=== PATIENT | female | born 2000 | race Caucasian/White ===

== ENCOUNTER → 2019-10-25 16:02 | Outpatient (BNVA) | payer MEDICAID, SELFPAY | PROVIDERS: Visit Provider Obstetrics & Gynecology | DX: Z32.01 Encounter for pregnancy test, result positive (principal) | CPT/HCPCS: 81025 ==

== ENCOUNTER 2019-11-02 12:36 | Outpatient (CLI) | payer MEDICAID, SELFPAY ==
--- NOTE | 2019-11-02 13:13 | US_ITS ---
WS: [id number] TRANSABDOMINAL FIRST TRIMESTER ULTRASOUND HISTORY: UNKNOWN LMP : 1 PARA: 0 COMPARISON: None available. FINDINGS: Cervical length is 3.7 cm; closed. Single live intrauterine . [place] rump length measuring 4.3 cm. . Gestational sac measures 11w1d cm. cardiac tones 160 BPM. Estimated date of delivery 05/22/2020. [place]-rump length measured 4.33 cm suggesting 11 weeks 1 day gestation. Right ovary measures 1.6 cm x 2.4 cm x 1.9 cm. US/US OB <= 14 weeks fetus [id number] IMPRESSION: [place]-rump length of the fetus suggest an weeks 1 day gestation due date Decemb er 2019.
== END 2019-11-02 12:37 | disposition home or self-care (01) ==
PROVIDERS: Visit Provider Nurse Practitioner Women's Health
DX: Z36.87 Encounter for antenatal screening for uncertain dates (principal); Z3A.11 11 weeks gestation of pregnancy
CPT/HCPCS: 76801

== ENCOUNTER → 2019-11-09 10:27 | Outpatient (BNVA) | payer MEDICAID, SELFPAY | PROVIDERS: Visit Provider Obstetrics & Gynecology | DX: Z34.01 Encounter for supervision of normal first pregnancy, first trimester (principal) | CPT/HCPCS: 80053; 80307; 81000; 85027; 86592; 86762; 86803; 86850; 86900; 87340; 87491; 87591; 87806; 88175 ==

== ENCOUNTER 2019-11-10 21:51 | Observation (INO) | payer MEDICAID, SELFPAY ==
[2019-11-10 22:03] VITALS: BP 109/71; PULSE 81; RESP 14; TEMP 36.3; O2SAT 98; BMI 28.3
--- NOTE | 2019-11-10 23:25 | ED_ITS ---
Documented by User: EDWIN Matthews 11/11/19 03:51 HPI - Back Pain/Injury General: Chief Complaint: Back Pain/Injury Stated Complaint: back and lung pain Time Seen by Provider: 11/10/19 23:25 History of Present Illness: HPI Narrative: Patient is a 19-year-old female that has 12 weeks comes to the ED with thoracic back pain. Pain started tonight. Patient says that she had her back popped earlier tonight by laying on the floor on her stomach and then her brother put weight on her her upper back to pop her back. Patient says she did not have any pain or discomfort after back was popped. One hour later she started having pleuritic midthoracic back pain. Patient also states that she did have a cheeseburger right before pain started as well. She also describes having some abdominal pain in the right upper quadrant region. She rates pain an 8 out of 10. She has not taken any pain meds before arriving to the ED. patient also states she had one episode of emesis earlier today. Denies any numbness tingling or weakness to extremities. Denies any bladder or bowel incontinence or loss of sensation in the pelvic region. Denies vaginal discharge or bleeding. Associated symptoms: Reports abdominal pain (RUQ), nausea and vomiting; Deny chills, dysuria, fatigue, fever(s) or hematuria Review of Systems Const: Denies: fever(s), chills or fatigue Eyes: Denies: change in vision or eye discomfort ENMT: Denies: throat pain, odynophagia, nasal discharge or nasal congestion Card: Denies: chest pain, palpitations, edema, swelling of feet/ankles, dyspnea on exertion or orthopnea Resp: Denies: dyspnea, productive cough or non-productive cough GI: Reports: abdominal pain (RUQ), nausea and vomiting; Denies: diarrhea, constipation or hematochezia : Denies: flank pain, dysuria or hematuria Musc: Reports: back pain; Denies: neck pain or extremity swelling Skin/Breast: Denies: rash or new lesions Neuro: Denies: headache(s), numbness in extremities or weakness in extremities PFS ED PFSH: Medical History Genital herpes Surgical History No pertinent past surgical history Family History Denies family history of Diabetes Bleeding disorder Cancer Hypertension Stroke Social History Smoking and tobacco status: never smoked Alcohol intake: former Former alcohol use details: Social before Physical Exam Const: COMMON NORMALS: patient oriented x3 and alert GENERAL APPEARANCE: cooperative; not comfortable (Patient appears uncomfortable and in some pain.) HENMT: COMMON NORMALS: normocephalic HEAD & SCALP: normocephalic MOUTH: moist mucous membranes abnormal (mild dehydration) THROAT: posterior oropharynx normal and uvula midline Eye: COMMON NORMALS: Equal, round and reactive pupils present PUPIL: Yes Equal, round and reactive pupils present Neck/C-Spine: COMMON NORMALS: supple GENERAL: Yes normal visual inspection Resp: COMMON NORMALS: normal respiratory effort, No retractions, No use of accessory muscles and clear to auscultation bilaterally AUSCULTATION: clear to auscultation bilaterally Cardio: COMMON NORMALS: regular rate, regular rhythm, S1 normal heart sound present, S2 normal heart sound present, No gallops present (Cardio), No clicks present (Cardio), No murmurs present (Cardio) and Peripheral pulses 2+ throughout RATE: regular rate RHYTHM: regular rhythm HEART SOUNDS: S1 normal heart sound present and S2 normal heart sound present PERIPHERAL PULSES: Peripheral pulses 2+ throughout GI: COMMON NORMALS: Normal to inspection, nondistended, normoactive bowel sounds present, Soft to palpation and no masses AUSCULTATION: Yes normoactive bowel sounds PALPATION: Yes Soft to palpation and Yes Tenderness to palpation present (GI) Details: RUQ (and epigastric region) : COMMON NORMALS: Yes no CVA tenderness BLADDER/KIDNEY EXAM: Yes no CVA tenderness Back/Pelvis: COMMON NORMALS: no CVA tenderness THORACIC SPINE/UPPER BACK: Yes thoracic spinal tenderness and Yes paraspinal muscle tenderness Extremity: COMMON NORMALS: normal to inspection and no pedal edema Neuro: COMMON NORMALS: patient oriented x3 and moves all extremities SENSORIUM/ORIENTATION: Yes alert Skin: COMMON NORMALS: no rashes or lesions noted GENERAL SKIN EXAM: no rashes or lesions noted and dry skin Course Reevaluation(s): Reevaluation #1: Patient had an episode of emesis while here in the ED. IV fluids, Zofran and morphine were ordered patient. Reevaluation #2: I used a Doppler to assess heart tones. I was able to capture a heart tone briefly and rate was at 190. Consultations: Consultation #1: I contacted the on-call general surgeon Dr. Arellano and spoke with him about patient's case and symptoms. I informed him that patient is [address] Arellano said he would like patient to be admitted but the patient's OB would be the admitting doctor and he wanted me to contact OB doctor. I then called patient's OB Dr. Mireles and informed him of patient's condition and that I had spoke to Dr. Arellano about patient and that he would like patient to be admitted. Dr. Mireles said that given patient's current problem of cholecystitis, he should not be the admitting doctor for patient because patient's complaint is not an OB related problem. Patient will be admitted to Dr. Arellano and OB can be consulted. Vital Signs: Vital signs: Vital Signs Temperature 97.4 F L 11/10/19 22:03 Pulse Rate 87 11/11/19 03:51 Respiratory Rate 16 11/11/19 03:51 Blood Pressure 130/83 11/11/19 03:51 Pulse Oximetry 98 11/11/19 03:51 MDM - Back Pain/Injury MDM Narrative: Medical decision making narrative: Patient is a 12 week 19-year-old female who comes to the ED with right upper quadrant abdominal pain radiating to back, nausea and vomiting. Patient appeared dehydrated and was having 8 out of 10 abdominal pain and vomited while here on the unit. White blood cells 13.6, CMP and lipase unremarkable. Ultrasound of gallbladder showed gallbladder wall thickness of 4 mm multiple stones and sludge seen. heart tones were assessed using a Doppler and I was able to capture briefly heart rate of 190. I contacted Dr. Arellano and discussed patient's case and patient will be admitted. I also contacted Dr. Mireles to inform him of patient's case and condition per Dr. Arellano's request. Dr. Rai will handle admission orders. Patient was informed about admission and she understood and agreed with plan. Lab Data: Attestation: I reviewed the patient's lab results. Labs: Lab Results 11/11/19 11/11/19 Range/Units 02:43 02:43 WBC 13.6 H (4.0-10.0) 10^3/ uL RBC 4.32 (4.1-5.3) 10^6/u L Hgb 12.6 (11.5-15.3) g/dL Hct 37.9 (37.0-47.0) % MCV 87.7 (81-99) fL MCH 29.2 (28.0-34.0) pg MCHC 33.2 (30.0-36.0) g/dL RDW 12.1 (12.1-15.1) % Plt Count 210 (130-400) 10^3/c mm MPV 10.9 H (7.4-10.4) fL Neut % (Auto) 92.1 % Lymph % (Auto) 5.6 % [place] % (Auto) 1.8 % Eos % (Auto) 0.1 % Baso % (Auto) 0.1 % Neut # (Auto) 12.5 H (1.8-7.7) 10^3/u L Lymph # (Auto) 0.8 (0.8-4.8) 10^3/u L [place] # (Auto) 0.2 (0.2-0.9) 10^3/u L Eos # (Auto) 0.0 (0.0-0.8) 10^3/u L Baso # (Auto) 0.0 (0.0-0.1) 10^3/u L Nucleated RBC % (a uto) 0 % Nucleated RBCs # 0.0 /100WBC Sodium 136 (136-145) mmol/L Potassium 3.9 (3.5-5.1) mmol/L Chloride 103 (98-107) mmol/L Carbon Dioxide 18 L (22-29) mmol/L Anion Gap 18.9 (5-19) BUN 6 (6-20) mg/dL Creatinine 0.4 L (0.5-0.9) mg/dL GFR Calculation 201.5 H (90-130) mL/min Glucose 116 H (65-115) mg/dL Calculated Osmolal ity 279 L (285-295) mOsm/k g Calcium 9.4 (8.5-10.5) mg/dL Total Bilirubin 0.8 (0.15-1.2) mg/dL AST 20 (0-32) U/L ALT 31 (0-33) U/L Alkaline Phosphata se 87 (35-105) IU/L Total Protein 6.8 (6.6-8.7) g/dL Albumin 3.7 (3.5-5.2) g/dL Globulin 3.1 (1.3-4.6) g/dL Lipase 19 (13-60) U/L Imaging Data^: Xray Ortho: Attestation: I personally reviewed and interpreted this imaging study as follows: Radiologist's impression: [address] [address] XRay Report Signed Patient: Elian Xiong Unit #: [id number] : 2000 Age/Sex: 19 / F ADM Date: 11/10/19 Loc: ER Room/Bed: Attending Dr: Ordering Provider/Ordering MD: Ubaldo John Date of Service: 11/10/19 Procedure(s): XR thoracic spine 2V 31830 Accession Number(s): [id number] Report Number: [id number] PROCEDURE INFORMATION: Exam: XR Thoracic Spine, 3 Views Exam date and time: 11/11/2019 12:13 AM Age: 19 years old Clinical indication: Pain in thoracic spine; Patient HX: PT states someone popped her back and now has pain, PT 12 weeks , shielded; Additional info: Mid to upper back pain TECHNIQUE: Imaging protocol: XR of the thoracic spine, 3 views. COMPARISON: No relevant prior studies available. FINDINGS: Vertebrae: Normal. No acute fracture. Normal alignment. Soft tissues: Unremarkable. XR/XR thoracic spine 2V [id number] IMPRESSION: No acute findings. Dictated By: Benedicto Deluca Signed By: Benedicto Deluca Signed Date/Time: 11/11/1938 DD/ CXR: Attestation: I personally reviewed and interpreted this imaging study as follows: Radiologist's impression: [address] [address] XRay Report Signed Patient: Elian Xiong Unit #: [id number] : 2000 Age/Sex: 19 / F ADM Date: 11/10/19 Loc: ER Room/Bed: Attending Dr: Ordering Provider/Ordering MD: Ubaldo John Date of Service: 11/10/19 Procedure(s): XR chest 1V portable [id number] Accession Number(s): [id number] Report Number: [id number] PROCEDURE INFORMATION: Exam: XR Chest, 1 View Exam date and time: 11/11/2019 12:13 AM Age: 19 years old Clinical indication: Chest wall pain; Patient HX: PT states someone popped her back and now has pain, PT 12 weeks , shielded; Additional info: Pleuritic cp TECHNIQUE: Imaging protocol: XR of the chest Views: 1 view. COMPARISON: No relevant prior studies available. FINDINGS: Lungs: Unremarkable. No consolidation. Pleural space: Unremarkable. No pleural effusion. No pneumothorax. Heart/Mediastinum: Unremarkable. No cardiomegaly. Bones/joints: Unremarkable. XR/XR chest 1V portable [id number] IMPRESSION: No acute findings. Dictated By: Benedicto Deluca Signed By: Benedicto Deluca Signed Date/Time: 11/11/19 0043 DD/ 0037 US: Attestation: I personally reviewed and interpreted this imaging study as follows: Radiologist's impression: Ultrasound of the gallbladder?prelim report-multiple gallstones seen and gallbladder wall 0.36 cm thick. Sludge was also seen. [address] [address] Ultrasound Report Signed Patient: Elian Xiong Unit #: [id number] : 2000 Ac ct#:[id number] Age/Sex: 19 / F ADM Date: 11/10/19 Loc: ER Room/Bed: Attending Dr: Ordering Provider/Ordering MD: Ubaldo John Date of Service: 11/11/19 Procedure(s): US gall bladder 33414 Accession Number(s): [id number] Report Number: [id number] PROCEDURE INFORMATION: Exam: US Abdomen Limited, Right Upper Quadrant Exam date and time: 11/11/2019 2:13 AM Age: 19 years old Clinical indication: Abdominal pain; Acute; ; Patient HX: Nv ruq pain; Additional info: N/v ruq pain TECHNIQUE: Imaging protocol: Real-time ultrasound of the abdomen with image documentation. Examination was focused on the right upper quadrant. COMPARISON: No relevant prior studies available. FINDINGS: Liver: Unremarkable liver, no focal abnormality. Gallbladder: Large amount of presumed biliary sludge within the gallbladder. Couple of small echogenic areas with probable acoustic shadowing, compatible with small gallstones. Mild to moderate gallbladder wall thickening, measuring up to about 4 mm. No definite pericholecystic fluid. The gallbladder does not appear abnormally distended at this time. Common bile duct: No significant biliary dilation, common duct measures about 5 mm. Pancreas: Visible pancreas unremarkable. Some of the pancreas is obscured by bowel gas at this time. Right kidney: Images of the right kidney show no hydronephrosis. US/US gall bladder 37500 IMPRESSION: 1. Cholelithiasis and biliary sludge in the gallbladder, see additional details above. 2. No significant biliary tree dilation. Above. 3. Other findings discussed above. Dictated By: Alessandro Owens MD Signed By: Alessandro Owens MD Signed Date/Time: 11/11/19234 DD/ 2 Discharge Plan Discharge Patient Disposition: Admitted As Inpatient Admit Provider: Gato Arellano Condition: Good Discharge Date/Time: 11/11/19 04:25 Sign Out Sign Out Data: Patient Sign Out occurred on 11/11/19 at 04:00. Patient's care was discussed, and care was transferred from to Jacque Nesbitt. Coding Level of Care Code ED Medical Delivery Driver for [facility] Fwd Exam Comprehensive Documented by User: Jacque Nesbitt 11/11/19 05:13 HPI - Back Pain/Injury General: Chief Complaint: Back Pain/Injury Stated Complaint: back and lung pain Time Seen by Provider: 11/10/19 23:25 PFSH ED PFSH: Medical History Genital herpes Surgical History No pertinent past surgical history Family History Denies family history of Diabetes Bleeding disorder Cancer Hypertension Stroke Social History Smoking and tobacco status: never smoked Alcohol intake: former Former alcohol use details: Social before Course Vital Signs: Vital signs: Vital Signs Temperature 97.4 F L 11/10/19 22:03 Pulse Rate 87 11/11/19 03:51 Respiratory Rate 16 11/11/19 03:51 Blood Pressure 130/83 11/11/19 03:51 Pulse Oximetry 98 11/11/19 03:51 MDM - Back Pain/Injury MDM Narrative: Medical decision making narrative: The patient was seen and examined by me I agree with midlevel's assessment and plan. I did discuss the patient directly with Dr. Arellano. Patient is feeling better after IV fluids and pain and nausea medication. Nonetheless she is very dehydrated and I believe would benefit from coming into the hospital for further evaluation and care. Dr. Arellano is in agreement. Dr. Mireles will consult. Further care be dictated by them on the floor. Lab Data: Labs: Lab Results 11/11/19 11/11/19 Range/Units 02:43 02:43 WBC 13.6 H (4.0-10.0) 10^3/ uL RBC 4.32 (4.1-5.3) 10^6/u L Hgb 12.6 (11.5-15.3) g/dL Hct 37.9 (37.0-47.0) % MCV 87.7 (81-99) fL MCH 29.2 (28.0-34.0) pg MCHC 33.2 (30.0-36.0) g/dL RDW 12.1 (12.1-15.1) % Plt Count 210 (130-400) 10^3/c mm MPV 10.9 H (7.4-10.4) fL Neut % (Auto) 92.1 % Lymph % (Auto) 5.6 % [place] % (Auto) 1.8 % Eos % (Auto) 0.1 % Baso % (Auto) 0.1 % Neut # (Auto) 12.5 H (1.8-7.7) 10^3/u L Lymph # (Auto) 0.8 (0.8-4.8) 10^3/u L [place] # (Auto) 0.2 (0.2-0.9) 10^3/u L Eos # (Auto) 0.0 (0.0-0.8) 10^3/u L Baso # (Auto) 0.0 (0.0-0.1) 10^3/u L Nucleated RBC % (a uto) 0 % Nucleated RBCs # 0.0 /100WBC Sodium 136 (136-145) mmol/L Potassium 3.9 (3.5-5.1) mmol/L Chloride 103 (98-107) mmol/L Carbon Dioxide 18 L (22-29) mmol/L Anion Gap 18.9 (5-19) BUN 6 (6-20) mg/dL Creatinine 0.4 L (0.5-0.9) mg/dL GFR Calculation 201.5 H (90-130) mL/min Glucose 116 H (65-115) mg/dL Calculated Osmolal ity 279 L (285-295) mOsm/k g Calcium 9.4 (8.5-10.5) mg/dL Total Bilirubin 0.8 (0.15-1.2) mg/dL AST 20 (0-32) U/L ALT 31 (0-33) U/L Alkaline Phosphata se 87 (35-105) IU/L Total Protein 6.8 (6.6-8.7) g/dL Albumin 3.7 (3.5-5.2) g/dL Globulin 3.1 (1.3-4.6) g/dL Lipase 19 (13-60) U/L Discharge Plan Discharge Patient Disposition: Admitted As Inpatient Admit Provider: Gato Arellano Condition: Good Discharge Date/Time: 11/11/19 04:25 Sign Out Sign Out Data: Patient Sign Out occurred on 11/11/19 at 04:00. Patient's care was discussed, and care was transferred from to [facility]. Coding Level of Care Code ED Medical Delivery Driver for [facility] Fwd Exam Comprehensive
--- NOTE | 2019-11-10 23:42 | XRR_ITS ---
PROCEDURE INFORMATION: Exam: XR Chest, 1 View Exam date and time: 11/11/2019 12:13 AM Age: 19 years old Clinical indication: Chest wall pain; Patient HX: PT states someone popped her back and now has pain, PT 12 weeks , shielded; Additional info: Pleuritic cp TECHNIQUE: Imaging protocol: XR of the chest Views: 1 view. COMPARISON: No relevant prior studies available. FINDINGS: Lungs: Unremarkable. No consolidation. Pleural space: Unremarkable. No pleural effusion. No pneumothorax. Heart/Mediastinum: Unremarkable. No cardiomegaly. Bones/joints: Unremarkable. XR/XR chest 1V portable [id number] IMPRESSION: No acute findings.
--- NOTE | 2019-11-10 23:42 | XRR_ITS ---
PROCEDURE INFORMATION: Exam: XR Thoracic Spine, 3 Views Exam date and time: 11/11/2019 12:13 AM Age: 19 years old Clinical indication: Pain in thoracic spine; Patient HX: PT states someone popped her back and now has pain, PT 12 weeks , shielded; Additional info: Mid to upper back pain TECHNIQUE: Imaging protocol: XR of the thoracic spine, 3 views. COMPARISON: No relevant prior studies available. FINDINGS: Vertebrae: Normal. No acute fracture. Normal alignment. Soft tissues: Unremarkable. XR/XR thoracic spine 2V [id number] IMPRESSION: No acute findings.
[2019-11-11] VITALS (16 sets, daily range): BP systolic 102–134; BP diastolic 60–94; PULSE 73–109; RESP 16–20; TEMP 36.8–37.9; O2SAT 97–100
--- NOTE | 2019-11-11 00:42 | USR_ITS ---
PROCEDURE INFORMATION: Exam: US Abdomen Limited, Right Upper Quadrant Exam date and time: 11/11/2019 2:13 AM Age: 19 years old Clinical indication: Abdominal pain; Acute; ; Patient HX: Nv ruq pain; Additional info: N/v ruq pain TECHNIQUE: Imaging protocol: Real-time ultrasound of the abdomen with image documentation. Examination was focused on the right upper quadrant. COMPARISON: No relevant prior studies available. FINDINGS: Liver: Unremarkable liver, no focal abnormality. Gallbladder: Large amount of presumed biliary sludge within the gallbladder. Couple of small echogenic areas with probable acoustic shadowing, compatible with small gallstones. Mild to moderate gallbladder wall thickening, measuring up to about 4 mm. No definite pericholecystic fluid. The gallbladder does not appear abnormally distended at this time. Common bile duct: No significant biliary dilation, common duct measures about 5 mm. Pancreas: Visible pancreas unremarkable. Some of the pancreas is obscured by bowel gas at this time. Right kidney: Images of the right kidney show no hydronephrosis. US/US gall bladder [id number] IMPRESSION: 1. Cholelithiasis and biliary sludge in the gallbladder, see additional details above. 2. No significant biliary tree dilation. Above. 3. Other findings discussed above.
[2019-11-11] MEDS: ondansetron 2 mg/ML SDV 2 mL 4 MG IVP (02:00)
[2019-11-11] MEDS: morphine 4 mg/mL SDV 1 mL IVP ×2 (02:00→05:12)
[2019-11-11] MEDS: sodium chloride 0.9% 1,000 ML 999 ML IV (02:02)
[2019-11-11 02:50] LABS: Basophils % 0.1 %; Eosinophils % 0.1 %; Hematocrit 37.9 % (37.0-47.0); Hemoglobin 12.6 g/dL (11.5-15.3); Lymphocytes # 0.8 10^3/uL (0.8-4.8); Lymphocytes % 5.6 %; Mean Corpuscular HGB Conc 33.2 g/dL (30.0-36.0); Mean Corpuscular Hemoglobin 29.2 pg (28.0-34.0); Mean Corpuscular Volume 87.7 fL (81-99); Mean Platelet Volume 10.9 fL (7.4-10.4); Monocytes # 0.2 10^3/uL (0.2-0.9); Monocytes % 1.8 %; Neutrophils # 12.5 10^3/uL (1.8-7.7); Neutrophils % 92.1 %; Nucleated Red Blood Cells % 0 %; Platelet Count 210 10^3/cmm (130-400); Red Blood Count 4.32 10^6/uL (4.1-5.3); Red Cell Distribution Width 12.1 % (12.1-15.1); White Blood Count 13.6 10^3/uL (4.0-10.0)
[2019-11-11 03:06] LABS: Alanine Aminotransferase 31 U/L (0-33); Albumin Level 3.7 g/dL (3.5-5.2); Alkaline Phosphatase 87 IU/L (35-105); Anion Gap 18.9 (5-19); Aspartate Amino Transferase 20 U/L (0-32); Blood Urea Nitrogen 6 mg/dL (6-20); Calcium 9.4 mg/dL (8.5-10.5); Carbon Dioxide 18 mmol/L (22-29); Chloride 103 mmol/L (98-107); Globulin 3.1 g/dL (1.3-4.6); Glomerular Filtration Rate 201.5 mL/min (90-130); Glucose 116 mg/dL (65-115); Lipase 19 U/L (13-60); Osmolality Calculated 279 mOsm/kg (285-295); Potassium 3.9 mmol/L (3.5-5.1); Sodium 136 mmol/L (136-145); Total Bilirubin 0.8 mg/dL (0.15-1.2); Total Protein 6.8 g/dL (6.6-8.7)
[2019-11-11] MEDS: dextrose 5%-sod chloride 0.45% 1,000 ML 150 ML IV (05:18)
[2019-11-11] MEDS: piperacillin-tazobactam 3.375 GM in sodium chloride 0.9% (plus) 50 ML IV ×2 (05:18→12:59)
--- NOTE | 2019-11-11 09:04 | PM.HP ---
Providers/Chief Complaint Admitting Physician: Gato Arellano MD Chief Complaint: back and lung pain History of Present Illness Elian Xiong is a 19 year old female who presented to the ER last night with severe right-sided abdominal pain associated nausea after she ate a cheeseburger. Patient states that she has had mild episodes in the past. Denies any fevers chills constipation or diarrhea. Denies any history of peptic ulcer disease or gastric ulcers in the past. Review of Systems General: Reports: 10 or more systems reviewed and unremarkable except in HPI and below Medications/Allergies Home Medications Medication Instructions Recorded Confirmed Last Taken Type No Known Home Medications 11/09/19 11/09/19 Unknown History Allergies Allergy/AdvReac Type Severity Reaction Status Date / Time No Known Allergies Allergy Verified 11/09/19 10:29 PFSH Acute PFSH: Medical History Genital herpes Surgical History No pertinent past surgical history Family History Denies family history of Diabetes Bleeding disorder Cancer Hypertension Stroke Social History Smoking and tobacco status: never smoked Alcohol intake: former Former alcohol use details: Social before Vitals/I&O/Wt Last Vital Signs Temp 98.2 F 11/11/19 08:00 Pulse 79 11/11/19 08:00 Resp 16 11/11/19 08:00 BP 102/60 11/11/19 08:00 Pulse Ox 98 11/11/19 08:00 Weight last 48 hrs Weight 160 lb Physical Exam Narrative: EXAM NARRATIVE: HEENT: Normocephalic Eye: Sclera /conjunctiva normal Respiratory and chest: Bilateral clear breath sounds on auscultation Cardiovascular: Normal S1 and S2 heart sounds Abdomen: Soft to palpation, tender right upper quadrant, Sanchez sign positive Neurological: Oriented to place person and time Skin: Intact, no lesions appreciated on gross exam Data : 11/11/19 02:43 11/11/19 02:43 A&P Assessment and plan (1) Symptomatic cholelithiasis: 19-year-old female who is greater than 12 weeks who presents with symptomatic cholelithiasis. Her heart tones documented prior to surgery. Discussed with patient the risks to the fetus. Discussed the case with her LEARNING ENGINEER Dr. Mireles who felt it was safe to proceed with surgery since she is greater than 12 weeks. Plan for laparoscopic possible open cholecystectomy Procedure, risks, benefits and alternatives have been discussed with the patient who wishes to proceed with surgery. Status: Acute Attestations Medical Necessity Statement*: Symptomatic cholelithiasis Coding Level of Care Code Acute Geotechnical Department Manager for Rosi [facility] Diagnoses Symptomatic cholelithiasis K80.20
--- NOTE | 2019-11-11 09:49 | PC.CHAP ---
Pastoral Care Encounter/Spiritual Assessment Type of Contact [] Declined virtual classroom manager visit [] Patient/Family/Request visit [] Outpatient visit [] Follow-up visit [] Physician referral [] Code/Alert [x] Routine visit [] Staff referral [] Actively dying [] Patient sleeping [] Family support [] [] Out of room [] Palliative care [] [] Receiving care in room [] Pre-surgical visit [] Trauma [] Long length of stay [] ICU visit [] Other: Relational/Emotional Strength [] Patient feels connected with others/family/visitors/staff [] Distress [] Loneliness/isolation [] Abandonment Spirituality of Patient [] Person of Serina [] Attends Pentecostal of their Serina [] Believes in Prayer [] Reads Bible or Roman Catholic materials [] There are Spiritual issues to be addressed Communications Superintendent Interventions [x] Prayer [] Active listening [] Non-anxious presence [] Spiritual/emotional support [] Crisis/trauma care [] Spiritual counseling [] Bereavement support [] Provided bereavement packet [] Provided Bible/devotional materials [] Provided toy/stuffed animal, coloring book to patient or family member [] Provided Communion [] Anointing/[place] [] Salvation [x] Completed spiritual assessment [] Other: Impact on Illness or Injury [] Angry [] Fearful [] Anxious [] Often cries [] Exhaustion [] Unable to work [] Unable to attend yarsanism [] Unable to walk/stand [] Unable to read [] Unable to drive [] Unable to eat/drink [] Unable to sleep [] Unable to be with family [] Patient intubated [] Other: Summary Patient awaiting surgery or status update. Requested nurse for update. Rested well last night Time spent with patient 10 min
--- NOTE | 2019-11-11 12:15 | P.ANESASSM_ITS ---
Pre-Anesthetic Assessment Pre-Anesthetic Assessment: Height/Weight: Height 1.6 m Weight 72.575 kg Temp Pulse Resp BP Pulse Ox 98.4 F 89 16 108/71 97 11/11/19 11:41 11/11/19 11:41 11/11/19 11:41 11/11/19 11:41 11/11/19 11:41 Preop Diagnosis: Cholelithiasis Proposed Procedure: Operation Date: 11/11/19 12:20 Proposed Procedures p Laparoscopic Cholecystectomy(Not Applicable) - Gato Arellano MD Familial anesthetic complications: None Was Beta Omer taken within 24 hours: N/A Last intake: Intake Last Liquid Date 11/10/19 Last Liquid Time 02:00 Last Solid Date 11/10/19 Last Solid Time 19:00 Social: Social History: No alcohol and No tobacco Exam: Pre-Anes Outpt Exam: alert, oriented x 3, clear to auscultation bilaterally and regular rate & rhythm Airway: Cervical ROM: WNL MP: 2 Dentition: Chipped Anesthetic Plan: ASA status: 2E Anesthesia: General Risk of > 500 ml blood loss (7ml/kg in children): No Meds/Allergies Current Medications: Current Medications Generic Name Dose Route Start Last Admin Trade Name Freq PRN Reason Stop Dose Admin Dextrose/Sodium Ch loride 1,000 mls @ 150 m ls/hr 11/11/19 04:40 11/11/19 05:18 Dextrose 5%-Sod Chloride 0.45% IV 150 mls/hr .Q6H40M RAMIRO Administration Cefazolin Sodium/D extrose 2 gm in 50 mls @ 100 mls/hr 11/11/19 08:00 11/11/19 09:05 Kefzol IV 100 mls/hr Q8H RAMIRO Administration Protocol Morphine Sulfate 4 mg 11/11/19 04:40 11/11/19 05:12 Morphine IVP 4 mg Q4H PRN Administration SEVERE PAIN PFSH Anesthesia PFSH: Medical History Genital herpes Surgical History No pertinent past surgical history Family History Denies family history of Diabetes Bleeding disorder Cancer Hypertension Stroke Social History Smoking and tobacco status: never smoked Alcohol intake: former Former alcohol use details: Social before Data Anesthesia CBC & Chem 7: 11/11/19 02:43 11/11/19 02:43 Other Labs: Laboratory Results - last 48 hr 11/11/19 11/11/19 02:43 02:43 WBC 13.6 H RBC 4.32 Hgb 12.6 Hct 37.9 MCV 87.7 MCH 29.2 MCHC 33.2 RDW 12.1 Plt Count 210 MPV 10.9 H Neut % (Auto) 92.1 Lymph % (Auto) 5.6 [place] % (Auto) 1.8 Eos % (Auto) 0.1 Baso % (Auto) 0.1 Neut # (Auto) 12.5 H Lymph # (Auto) 0.8 [place] # (Auto) 0.2 Eos # (Auto) 0.0 Baso # (Auto) 0.0 Nucleated RBC % (auto) 0 Nucleated RBCs # 0.0 Sodium 136 Potassium 3.9 Chloride 103 Carbon Dioxide 18 L Anion Gap 18.9 BUN 6 Creatinine 0.4 L GFR Calculation 201.5 H Glucose 116 H Calculated Osmolality 279 L Calcium 9.4 Total Bilirubin 0.8 AST 20 ALT 31 Alkaline Phosphatase 87 Total Protein 6.8 Albumin 3.7 Globulin 3.1 Lipase 19 Cardiac Studies: No Data to Display
--- NOTE | 2019-11-11 12:16 | SUR.PHASEI ---
1215 HR 152
--- NOTE | 2019-11-11 13:17 | SUR.OPER ---
Pt's mother - Teresa - notified of surgery start via her cell phone.
--- NOTE | 2019-11-11 13:50 | SUR.PHASEI ---
1350 HRT 146
--- NOTE | 2019-11-11 14:12 | SUR.PHASEI ---
1410 PT RESTING COMFORTABLE APPEARS TO BE SLEEPING, VS WITHIN NORMAL LIMITS,
[2019-11-11] MEDS: HYDROcodone-acetaminophen 5-325 mg Tablet 1 TAB PO (14:40)
--- NOTE | 2019-11-11 14:45 | PM.DCS ---
Discharge Providers Date of Admission: 11/11/19 03:32 Date of Discharge: November 11, 2019 Attending Provider at Admission: Gato Arellano MD Attending Provider at Discharge: Gato Arellano MD Diagnoses at Discharge Discharge Diagnosis (1) Symptomatic cholelithiasis: Status: Resolved Reason for Visit Reason for Visit: back and lung pain Hospital Course Discharge Summary: This is a 19-year-old female who presented to the ER with right upper quadrant pain and nausea and was diagnosed with acute calculus cholecystitis. Patient underwent laparoscopic cholecystectomy. At time of discharge her vital signs are stable and she was tolerating liquid diet. Discharge Data Data Completed and Pending: Completed Studies During Hospitalization Category Date Time Status XR chest 1V sean ble [id number] Stat Exams 11/10/19 23:42 Completed XR thoracic spine 2V [id number] Stat Exams 11/10/19 23:42 Completed US gall bladder 7 [id number] Urgent Ultrasound 11/11/19 00:42 Completed Pending at discharge Category Date Time Status Pathology: Surgic al [PTH] Routine Pth 11/11/19 13:24 Ordered Labs from last 24 hours 11/11/19 11/11/19 02:43 02:43 WBC 13.6 H RBC 4.32 Hgb 12.6 Hct 37.9 MCV 87.7 MCH 29.2 MCHC 33.2 RDW 12.1 Plt Count 210 MPV 10.9 H Neut % (Auto) 92.1 Lymph % (Auto) 5.6 [place] % (Auto) 1.8 Eos % (Auto) 0.1 Baso % (Auto) 0.1 Neut # (Auto) 12.5 H Lymph # (Auto) 0.8 [place] # (Auto) 0.2 Eos # (Auto) 0.0 Baso # (Auto) 0.0 Nucleated RBC % (a uto) 0 Nucleated RBCs # 0.0 Sodium 136 Potassium 3.9 Chloride 103 Carbon Dioxide 18 L Anion Gap 18.9 BUN 6 Creatinine 0.4 L GFR Calculation 201.5 H Glucose 116 H Calculated Osmolal ity 279 L Calcium 9.4 Total Bilirubin 0.8 AST 20 ALT 31 Alkaline Phosphata se 87 Total Protein 6.8 Albumin 3.7 Globulin 3.1 Lipase 19 Vitals: Last Vital Signs Temp 98.7 F 11/11/19 14:30 Pulse 83 11/11/19 14:30 Resp 20 H 06/12/20 14:30 BP 124/68 11/11/19 14:30 Pulse Ox 100 11/11/19 14:30 Discharge Plan Discharge Patient Disposition: Home, Self-Care Condition: Stable Prescriptions: [place] 5-325 mg tablet 1 tab PO Q6H 7 Days Qty: 20 RF: 0 docusate sodium [Colace] 100 mg capsule 100 mg PO BID Qty: 30 RF: 0 No Action No Known Home Medications RF: 0 Discharge Orders: Discharge Order (Routine); Ordered 11/11/19 Ordered By: Gato Arellano Referrals: Gato Arellano MD [Physician] - 2 weeks Activity Restrictions/Additional Instructions: 1. Up and walking as tolerated. 2. Ok to shower in 48 hours after surgery. 3. Remove Dermabond dressing in 7-10 days. 4. Do not lift more than 10 pounds. 5. Do not operate heavy machinery or drive while using pain medications. 6. Advised to return to ER or contact my office if there are any signs of infection like, increasing pain, fevers, chills, redness or drainage of pus. 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
[2019-11-11] MEDS: metoclopramide 5 mg/mL SDV 2 mL 10 MG IVP (15:55)
--- NOTE | 2019-11-24 14:18 | PM.OP ---
Operative Report Date of procedure: November 11, 2019 Pre-op Diagnosis: Cholelithiasis Post-op diagnosis: same Procedure Done: Laparoscopic cholecystectomy Specimens removed/disposition: Gallbladder Surgeon: Gato Arelalno Anesthesia: General Estimated blood loss (mL): 10 Condition: stable Disposition: PACU Procedure: The patient was taken to the operating room and was intubated under general anesthesia. After the antibiotic had been administered, the abdomen was prepped and draped in a sterile manner. Using a #15 blade, a 1 centimeter infraumbilical curvilinear incision was made and using an open Jessica technique the peritoneal cavity was entered. A 10 millimeter port was placed and 15 millimeters of pneumoperitoneum was created. A 10 millimeter, 30 degrees scope was then introduced. Three 5 millimeter ports were placed in the epigastric, midclavicular and the anterior axillary line two fingerbreadths below the costal margin on the right side under the direct visualization. Ratcheted forceps were introduced into the lateral most port and was used to retract the fundus of the gallbladder cephalad and using forceps the infundibulum of the gallbladder was retracted laterally. Using L-hook cautery the peritoneum overlying the Calot's triangle was opened medially and laterally until the cystic duct and the cystic artery were skeletonized. Dissection was carried along the body of the gallbladder and after ensuring critical view of safety, 4 clips applied on the cystic duct and 3 clips applied on the cystic artery and cut leaving, 3 clips on the remaining portion of the duct and 2 clips on the remaining portion of the artery. The rest of the gallbladder was dissected off the liver using L-hook cautery. There was no bleeding or bile leaking noted from the gallbladder fossa and the clips appeared to be in place. An EndoCatch bag was introduced to remove the gallbladder. All the ports were removed under direct visualization and there was no bleeding noted from the port sites. The fascia of the umbilicus was closed using [id number] 0 Vicryl sutures and the subcutaneous tissue was approximated using 3-0 Vicryl sutures. The skin at all four ports were closed using 4-0 Monocryl and Dermabond. A total of 10 millimeters of 0.5% Marcaine was infiltrated around the port sites. The patient was stable throughout the procedure.
== END 2019-11-11 17:31 | disposition home or self-care (01) ==
LOC: ER 11-11 04:00 → MEDSURG 11-11 04:06
PROVIDERS: Physician Assistant; Admitting Provider Surgery; Visit Provider Surgery
PROC: 0FT44ZZ Resection of Gallbladder, Percutaneous Endoscopic Approach (ICD-10-PCS; CPT 47562; principal; 2019-11-11 12:00)
DX: O99.611 Diseases of the digestive system complicating pregnancy, first trimester (principal); Z3A.00 Weeks of gestation of pregnancy not specified; K80.10 Calculus of gallbladder with chronic cholecystitis without obstruction
CPT/HCPCS: 47562; 12345; 71045; 72070; 76705; 80053; 83690; 85025; 88304; 96361; 96374; 96375; 99282; 99285; G0378; J0690; J2001; J2270; J2405; J2543; J2704; J2710; J2765; J3010; J3490; J7030; J7799

== ENCOUNTER → 2019-12-07 13:44 | Outpatient (BNVA) | payer MEDICAID, SELFPAY | PROVIDERS: Visit Provider Nurse Practitioner Women's Health | DX: O98.512 Other viral diseases complicating pregnancy, second trimester (principal); A60.00 Herpesviral infection of urogenital system, unspecified; O21.9 Vomiting of pregnancy, unspecified; Z3A.16 16 weeks gestation of pregnancy | CPT/HCPCS: 81000 ==

== ENCOUNTER → 2019-12-22 11:39 | Outpatient (BNVA) | payer MEDICAID, SELFPAY | PROVIDERS: Visit Provider Obstetrics & Gynecology | DX: R10.11 Right upper quadrant pain (principal) | CPT/HCPCS: 80053; 82248; 85025 ==

== ENCOUNTER → 2020-01-04 10:49 | Outpatient (BNVA) | payer MEDICAID, SELFPAY | PROVIDERS: Visit Provider Obstetrics & Gynecology | DX: Z36.89 Encounter for other specified antenatal screening (principal) | CPT/HCPCS: 76805 ==

== ENCOUNTER → 2020-01-09 11:29 | Outpatient (BNVA) | payer MEDICAID, SELFPAY | PROVIDERS: Visit Provider Obstetrics & Gynecology | DX: Z34.90 Encounter for supervision of normal pregnancy, unspecified, unspecified trimester (principal); Z34.02 Encounter for supervision of normal first pregnancy, second trimester | CPT/HCPCS: 81000 ==

== ENCOUNTER → 2020-02-02 09:58 | Outpatient (BNVA) | payer MEDICAID, SELFPAY | PROVIDERS: Visit Provider Nurse Practitioner Women's Health | DX: Z34.90 Encounter for supervision of normal pregnancy, unspecified, unspecified trimester (principal); R31.9 Hematuria, unspecified | CPT/HCPCS: 80053; 81000 ==

== ENCOUNTER 2020-02-14 09:41 | Outpatient (CLI) | payer MEDICAID, SELFPAY ==
--- NOTE | 2020-02-14 10:14 | MR_ITS ---
WS: [id number] MRI/MRCP OF THE ABDOMEN WITHOUT GADOLINIUM ENHANCEMENT TECHNIQUE: Thin and thick slab MRCP, Axial T2, Coronal MRCP, Axial Dual Echo, and Axial 2-D Fiesta imaging was obtained. Coronal 2-D Fiesta imaging. CLINICAL INFORMATION: h/o cholecystectomy COMPARISON: CT July 12, 2015 and ultrasound November 11, 2019 FINDINGS: Normal liver. Portal vein and splenic vein are patent. Cholecystectomy clips. No fluid in the gallbla dder fossa. No intrahepatic biliary ductal dilatation. Normal spleen. Normal pancreas and pancreatic duct. Normal visualized common bile duct. No evidence of choledocholithiasis. Normal renal parenchymal enhancement. Prominent extra renal pelvises bilaterally. No hydronephrosis. Visualized ureters are normal. Normal visualized abdominal aorta. No abdominal lymphadenopathy. Parti ally visualized intrauterine gestation MR/MR MRCP [id number] Impression: 1. Gallbladder has been removed. No evidence of choledocholithiasis. Normal vi sualized common bile duct. 2. No evidence of fluid or biloma in the gallbladder bed. 3. Normal liver and portal veins. 4. Pancreas is normal in appearance. Normal pancreatic duct. 5. Prominent extrarenal pelvises bilaterally with normal caliber ureters. No h ydronephrosis. 6. Partially visualized intrauterine gestation.
== END 2020-02-14 09:42 | disposition home or self-care (01) ==
LOC: RADWPI 09:47
PROVIDERS: Visit Provider Surgery
DX: R07.81 Pleurodynia (principal); R10.9 Unspecified abdominal pain; Z90.49 Acquired absence of other specified parts of digestive tract; Z33.1 Pregnant state, incidental
CPT/HCPCS: 74181

== ENCOUNTER → 2020-03-01 09:28 | Outpatient (BNVA) | payer MEDICAID, SELFPAY | PROVIDERS: Visit Provider Nurse Practitioner Women's Health | DX: O26.899 Other specified pregnancy related conditions, unspecified trimester (principal); Z67.91 Unspecified blood type, Rh negative; R07.81 Pleurodynia; O98.511 Other viral diseases complicating pregnancy, first trimester; B00.9 Herpesviral infection, unspecified; O21.9 Vomiting of pregnancy, unspecified | CPT/HCPCS: 81000; 82950; 85027; 86850 ==

== ENCOUNTER → 2020-03-08 08:12 | Outpatient (BNVA) | payer MEDICAID, SELFPAY | PROVIDERS: Visit Provider Obstetrics & Gynecology | DX: R73.09 Other abnormal glucose (principal) | CPT/HCPCS: 82951; 82952 ==

== ENCOUNTER 2020-03-09 11:15 | Outpatient (CLI) | payer MEDICAID, SELFPAY ==
[2020-03-09 11:39] VITALS: BP 116/61; PULSE 88
[2020-03-09 11:40] VITALS: TEMP 36.5
[2020-03-09 11:46] VITALS: BMI 30.2
[2020-03-09 12:10] LABS: Nitrazine Paper, PH Negative
[2020-03-09 12:15] LABS: Actim Prom Negative
[2020-03-09 12:23] VITALS: BP 104/64; PULSE 92
== END 2020-03-09 12:28 | disposition home or self-care (01) ==
LOC: OPOB 11:23 → OBGYN 11:24
PROVIDERS: Visit Provider Obstetrics & Gynecology
DX: O26.899 Other specified pregnancy related conditions, unspecified trimester (principal); Z3A.00 Weeks of gestation of pregnancy not specified; N89.8 Other specified noninflammatory disorders of vagina
CPT/HCPCS: 59025; 83986; 84112; 99211

== ENCOUNTER → 2020-03-15 14:34 | Outpatient (BNVA) | payer MEDICAID, SELFPAY | PROVIDERS: Visit Provider Obstetrics & Gynecology | DX: Z34.90 Encounter for supervision of normal pregnancy, unspecified, unspecified trimester (principal) | CPT/HCPCS: 81000 ==

== ENCOUNTER → 2020-03-29 08:18 | Outpatient (BNVA) | payer MEDICAID, SELFPAY | PROVIDERS: Visit Provider Obstetrics & Gynecology | DX: Z34.90 Encounter for supervision of normal pregnancy, unspecified, unspecified trimester (principal) | CPT/HCPCS: 81000 ==

== ENCOUNTER 2020-04-03 02:45 | Outpatient (CLI) | payer MEDICAID, SELFPAY ==
[2020-04-03] VITALS (30 sets, daily range): BP systolic 0–136; BP diastolic 0–85; PULSE 71–112; RESP 16–19; TEMP 36.6–36.9; BMI 31.8
[2020-04-03] MEDS: HYDROcodone-acetaminophen 5-325 mg Tablet 2 TAB PO (03:34)
[2020-04-03] MEDS: ondansetron 2 mg/ML SDV 2 mL 4 MG IVP (03:41)
[2020-04-03] MEDS: lactated ringers 1,000 ML 999 ML IV (03:42)
[2020-04-03 03:58] LABS: Bilirubin Urine Neg (Negative); Blood Urine 3+ (Negative); Ketones Urine Negative (Negative); Leukocyte Esterase Urine Negative (Negative); Nitrate Urine Negative (Negative); Protein Urine Neg (Negative); Urine Appearance Cloudy (CLEAR); Urine Color Red (Yellow); Urobilinogen Urine Norm (Negative); pH Urine 6.5 (5-7)
[2020-04-03 03:59] LABS: Add Urine Culture? No; Add Urine Microscopic? YES; Bacteria Urine TRACE /hpf; Glucose Urine UA Trace (Normal); RBC Urine TOO NUMEROUS TO CNT /hpf (0-2); Squamous Epithelial Cell Urine 0-4 /hpf (0-5)
[2020-04-03] MEDS: morphine 4 mg/mL SDV 1 mL IVP (04:25)
[2020-04-03] MEDS: lactated ringers 1,000 ML 150 ML IV (04:43)
[2020-04-03 05:00] LABS: Basophils % 0.2 %; Eosinophils % 0.2 %; Hematocrit 36.6 % (37.0-47.0); Hemoglobin 11.7 g/dL (11.5-15.3); Lymphocytes # 1.7 10^3/uL (0.8-4.8); Lymphocytes % 13.7 %; Mean Corpuscular Hemoglobin 28.1 pg (28.0-34.0); Mean Platelet Volume 10.9 fL (7.4-10.4); Monocytes # 0.6 10^3/uL (0.2-0.9); Monocytes % 4.4 %; Neutrophils # 10.19 10^3/uL (1.8-7.7); Neutrophils % 80.9 %; Nucleated Red Blood Cells % 0 %; Platelet Count 203 10^3/cmm (130-400); Red Blood Count 4.16 10^6/uL (4.1-5.3); Red Cell Distribution Width 12.1 % (12.1-15.1); White Blood Count 12.6 10^3/uL (4.0-10.0)
[2020-04-03 05:30] LABS: Alanine Aminotransferase 15 U/L (0-33); Albumin Level 3.1 g/dL (3.5-5.2); Alkaline Phosphatase 135 IU/L (35-105); Aspartate Amino Transferase 13 U/L (0-32); Blood Urea Nitrogen 7 mg/dL (6-20); Calcium 9.1 mg/dL (8.5-10.5); Carbon Dioxide 18 mmol/L (22-29); Chloride 106 mmol/L (98-107); Globulin 2.9 g/dL (1.3-4.6); Glomerular Filtration Rate 126.2 mL/min (90-130); Glucose 106 mg/dL (65-115); Osmolality Calculated 280 mOsm/kg (285-295); Sodium 136 mmol/L (136-145); Total Bilirubin 0.4 mg/dL (0.15-1.2)
== END 2020-04-03 10:25 | disposition home or self-care (01) ==
LOC: OPOB 02:45 → OBGYN 09:22
PROVIDERS: Visit Provider Obstetrics & Gynecology
DX: O26.899 Other specified pregnancy related conditions, unspecified trimester (principal); Z3A.00 Weeks of gestation of pregnancy not specified; M54.9 Dorsalgia, unspecified
CPT/HCPCS: 59025; 80053; 81001; 85025; 87086; 96375; 99211; J2270; J2405

== ENCOUNTER 2020-04-04 13:40 | Observation (INO) | payer MEDICAID, SELFPAY ==
[2020-04-04] VITALS (12 sets, daily range): BP systolic 114–129; BP diastolic 67–73; PULSE 93–116; RESP 16–20; TEMP 36.7; O2SAT 94–99; BMI 31.8
--- NOTE | 2020-04-04 14:07 | US_ITS ---
WS: [id number] ULTRASOUND RENAL TECHNIQUE: Ultrasound examination of both kidneys. CLINICAL INFORMATION: LEFT FLANK PAIN R/O STONES COMPARISON: None. FINDINGS: RIGHT: Right kidney is normal in size and appearance. Echogenicity: Normal. Cortical thickness: 1.6 cm; Normal. Hydronephrosis: None. Perinephric fluid: None. Right kidney measures: 12.6 cm x 5.3 cm x 5.2 cm. LEFT: Left kidney demonstrates mild pelvocaliectasis and proximal ureterectasis. Echogenicity: Normal. Cortical thickness: 1.8 cm; Normal. Hydronephrosis: Mild Perinephric fluid: None. Left kidney measures: 14.1 cm x 5.3 cm x 5.8 cm. Normal visualized aorta. Decompressed bladder. US/US renal BI* [id number] IMPRESSION: 1. Mild left pelvocaliectasis and ureterectasis. No visualized parenchymal or proximal obstructing calculi. Ureter can be further evaluated with noncontrast renal stone protocol CT to assess for obstructing calculus if clinically indica john. 2. No hydronephrosis in right kidney. 3. Bladder is decompressed.
--- NOTE | 2020-04-04 14:40 | PC.NURSE ---
UNABLE TO DRAW LABS, THIS SOLE TACKER CALLED LAB AT 1440 TO COME DRAW THEM FOR ME.
[2020-04-04 15:14] LABS: Basophils % 0.1 %; Eosinophils % 0.3 %; Hematocrit 37.8 % (37.0-47.0); Hemoglobin 12.2 g/dL (11.5-15.3); Lymphocytes # 1.7 10^3/uL (0.8-4.8); Lymphocytes % 16.1 %; Mean Corpuscular HGB Conc 32.3 g/dL (30.0-36.0); Mean Corpuscular Hemoglobin 28.4 pg (28.0-34.0); Mean Corpuscular Volume 87.9 fL (81-99); Mean Platelet Volume 10.8 fL (7.4-10.4); Monocytes # 0.5 10^3/uL (0.2-0.9); Monocytes % 5.2 %; Neutrophils # 8.14 10^3/uL (1.8-7.7); Neutrophils % 77.7 %; Nucleated Red Blood Cells % 0 %; Platelet Count 223 10^3/cmm (130-400); Red Cell Distribution Width 12.4 % (12.1-15.1); White Blood Count 10.5 10^3/uL (4.0-10.0)
[2020-04-04 15:18] LABS: Bilirubin Urine Neg (Negative); Blood Urine 3+ (Negative); Glucose Urine UA Norm (Normal); Ketones Urine Negative (Negative); Nitrate Urine Negative (Negative); Protein Urine Neg (Negative); Urine Appearance Clear (CLEAR); Urine Color Yellow (Yellow); pH Urine 7 (5-7)
[2020-04-04 15:19] LABS: Leukocyte Esterase Urine Negative (Negative); RBC Urine 50-80 /hpf (0-2); Urobilinogen Urine 1 mg/dL (Negative); WBC Urine 0-4 /hpf (0-5)
[2020-04-04 15:20] LABS: Add Urine Culture? Yes; Bacteria Urine 1+ /hpf; Mucus Urine TRACE /hpf; Squamous Epithelial Cell Urine 0-4 /hpf (0-5)
[2020-04-04 16:18] LABS: Anion Gap 15.9 (5-19); Blood Urea Nitrogen 5 mg/dL (6-20); Calcium 9.1 mg/dL (8.5-10.5); Carbon Dioxide 21 mmol/L (22-29); Chloride 104 mmol/L (98-107); Glomerular Filtration Rate 155.7 mL/min (90-130); Glucose 80 mg/dL (65-115); Osmolality Calculated 280 mOsm/kg (285-295); Potassium 3.9 mmol/L (3.5-5.1); Sodium 137 mmol/L (136-145)
[2020-04-04] MEDS: oxyCODONE-APAP 5-325 mg Tablet 1 TAB PO ×3 (16:46→23:30)
[2020-04-04] MEDS: lactated ringers 1,000 ML 999 ML IV ×2 (17:22→19:27)
[2020-04-04] MEDS: terbutaline 1 mg/mL INJ 0.25 MG SUBCUT (19:26)
[2020-04-05] VITALS (29 sets, daily range): BP systolic 0–135; BP diastolic 0–85; PULSE 68–98; RESP 16–18
[2020-04-05] MEDS: oxyCODONE-APAP 5-325 mg Tablet PO ×3 (01:28→10:27)
--- NOTE | 2020-04-05 02:06 | PC.NURSE ---
notified Dr. Trinh of patient c/o pain at a 9 on 1-10 scale less than 2 hours after scheduled dose. Received orders from for Fentanyl protocol. This nurse stated that I did not think that he was able to order that due to patient being treated for a medical issue and not laboring. This nurse offered to clarify if it was possible, if it was available for that patient I would place the order. Dr. Trinh asked when patient had had last PO medication, this nurse stated that it had been right at 2 hours. Received orders to increase dose of percocet to 1-2 tabs Q4 hours.
[2020-04-05] MEDS: ondansetron 2 mg/ML SDV 2 mL 4 MG IVP (09:16)
[2020-04-05] MEDS: lactated ringers 1,000 ML 60 ML IV (11:58)
--- NOTE | 2020-04-05 13:54 | P.DS_ITS ---
Discharge Providers MULTIGRAPHER Date of Admission: 04/04/20 13:40 Date of Discharge: 04/05/20 Attending Provider at Admission: Yordy Mireles MD Attending Provider at Discharge: Yordy Mireles MD Primary Care Provider: Yordy Mireles MD Diagnoses at Discharge Discharge Diagnosis (1) Calculus of kidney affecting in third trimester: Status: Acute Reason for Visit Reason for Visit: Brief History: 19-year-old, 1, Para 0 with LMP of 11/29/2019 with an NILO of 05/22/2020 based on an 11-week ultrasound at 33 weeks with pain due to left renal nephrolithiasis. Hospital Course Hospital Course: 19-year-old, 1, Para 0 with LMP of 11/29/2019 with an NILO of 05/22/2020 based on an 11-week ultrasound. EGA at 33 weeks. Patient admitted to labor and delivery for observation due to left nephrolithiasis, for hydration and pain control. During the night she was given and one time dose tocolysis, IV fluids, and by mouth narcotics. This morning she refers pain is under control and refers she wants to go home. Physical Exam Const: COMMON NORMALS: no acute distress and well nourished EXAM LIMITATIONS: no altered mental status GENERAL APPEARANCE: cooperative and well hydrated ORIENTATION/CONSCIOUSNESS: Yes awake, Yes oriented to person, Yes oriented to place and Yes oriented to time GI: COMMON NORMALS: Soft to palpation INSPECTION: Yes gravid abdomen PALPATION: Yes Soft to palpation and No Tenderness to palpation present (GI) Neuro: SENSORIUM/ORIENTATION: Yes oriented to person, Yes oriented to place and Yes oriented to time Discharge Data Data Completed and Pending: Completed Studies During Hospitalization Category Date Time Status US renal BI* [id number] Urgent Ultrasound 04/04/20 14:07 Completed Pending at discharge Category Date Time Status Urine Culture Sta t Lab 04/04/20 14:05 Results Labs from last 24 hours 04/04/20 04/04/20 04/04/20 15:01 15:01 14:05 WBC 10.5 H RBC 4.30 Hgb 12.2 Hct 37.8 MCV 87.9 MCH 28.4 MCHC 32.3 RDW 12.4 Plt Count 223 MPV 10.8 H Neut % (Auto) 77.7 Lymph % (Auto) 16.1 [place] % (Auto) 5.2 Eos % (Auto) 0.3 Baso % (Auto) 0.1 Neut # (Auto) 8.14 H Lymph # (Auto) 1.7 [place] # (Auto) 0.5 Eos # (Auto) 0.0 Baso # (Auto) 0.0 Nucleated RBC % (a uto) 0 Nucleated RBCs # 0.0 Sodium 137 Potassium 3.9 Chloride 104 Carbon Dioxide 21 L Anion Gap 15.9 BUN 5 L Creatinine 0.5 GFR Calculation 155.7 H Glucose 80 Calculated Osmolal ity 280 L Calcium 9.1 Urine Color Yellow Urine Appearance Clear Urine pH 7 Ur Specific Gravit y 1.010 Urine Protein Neg Urine Glucose (UA) Norm Urine Ketones Negative Urine Blood 3+ H Urine Nitrate Negative Urine Bilirubin Neg Urine Urobilinogen 1 H Ur Leukocyte Autumn ase Negative Urine RBC 50-80 H Urine WBC 0-4 H Ur Squamous Epith Cells 0-4 H Amorphous Sediment Not Reportable Urine Bacteria 1+ H Urine Mucus Trace Vitals: Last Vital Signs Temp 98.1 F 04/04/20 14:00 Pulse 90 04/05/20 13:39 Resp 18 04/05/20 10:27 BP 125/68 04/05/20 13:39 Pulse Ox 99 04/04/20 20:28 Discharge Plan Discharge Patient Disposition: Home Condition: Stable Prescriptions: Continued prenat.vits,isidoro,[id number] Tablet 1 tab PO DAILY RF: 0 calcium carbonate [Calcium 500] 500 mg calcium (1,250 mg) tablet See Rx Instructions PO DAILY RF: 0 ferrous sulfate 325 mg (65 mg iron) tablet See Rx Instructions PO DAILY RF: 0 magnesium gluconate 27 mg magnesium (500 mg) tablet See Rx Instructions PO DAILY RF: 0 famotidine [Pepcid] 20 mg tablet 20 mg PO BID Qty: 60 RF: 3 valacyclovir [Valtrex] 500 mg tablet 500 mg PO Q12H Qty: 60 RF: 6 Discharge Orders: Discharge Order (Routine); Ordered 04/05/20 Ordered By: Jared Trinh Referrals: Yordy Mireles MD [Primary Care Provider] - Discharge Diet: Regular Discharge Activity: Resume usual activity Patient Instructions: Kidney Stones (DC), OB Undelivered Discharge Activity Restrictions/Additional Instructions: Keep next scheduled appointment. Drink plenty of water. Routine labor precautions. 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
== END 2020-04-05 14:19 | disposition home or self-care (01) ==
PROVIDERS: Admitting Provider Obstetrics & Gynecology; PCP Obstetrics & Gynecology; Visit Provider Obstetrics & Gynecology
DX: O26.833 Pregnancy related renal disease, third trimester (principal); N20.0 Calculus of kidney; Z3A.33 33 weeks gestation of pregnancy
CPT/HCPCS: 12345; 36415; 76770; 80048; 81001; 85025; 87086; 96360; 96361; 96375; 99211; G0378; G0379; J2405; J3105

== ENCOUNTER → 2020-04-12 10:13 | Outpatient (BNVA) | payer MEDICAID, SELFPAY | PROVIDERS: PCP Obstetrics & Gynecology; Visit Provider Nurse Practitioner Women's Health | DX: Z34.90 Encounter for supervision of normal pregnancy, unspecified, unspecified trimester (principal) | CPT/HCPCS: 81000 ==

== ENCOUNTER → 2020-04-24 09:42 | Outpatient (BNVA) | payer MEDICAID, SELFPAY | PROVIDERS: PCP Obstetrics & Gynecology; Visit Provider Obstetrics & Gynecology | DX: Z34.03 Encounter for supervision of normal first pregnancy, third trimester (principal) | CPT/HCPCS: 81000; 87081 ==

== ENCOUNTER 2020-04-25 17:37 | Outpatient (CLI) | payer MEDICAID, SELFPAY ==
[2020-04-25] VITALS (12 sets, daily range): BP systolic 0–140; BP diastolic 0–84; PULSE 75–92; RESP 16; TEMP 36.7–36.9; BMI 31.8
[2020-04-25] MEDS: lactated ringers 1,000 ML 999 ML IV (18:36)
--- NOTE | 2020-04-25 21:00 | PM.ACPR ---
Procedure/Consent Procedure Narrative: NONSTRESS TEST: Place of test: [facility] [place] Indication: 20-year-old 1 para 0 at 36 weeks and 1 day gestation, abdominal pain Date and time of test: 04/25/2020, 8:30 PM Baseline: 125 Variability: Moderate variability Accelerations: Present Decelerations: None Tocometry: Irregular contractions every 3 to 7 minutes INTERPRETATION: NST reactive, continue kick counts
[2020-04-25 21:09] LABS: Actim Prom Negative
[2020-04-25] MEDS: hyDROXYzine 25 mg Capsule 50 MG PO (21:25)
== END 2020-04-25 21:30 | disposition home or self-care (01) ==
LOC: OPOB 17:39 → OBGYN 21:15
PROVIDERS: PCP Obstetrics & Gynecology; Visit Provider Obstetrics & Gynecology
DX: O26.899 Other specified pregnancy related conditions, unspecified trimester (principal); Z3A.00 Weeks of gestation of pregnancy not specified; R10.9 Unspecified abdominal pain
CPT/HCPCS: 36415; 59025; 84112; 99211

== ENCOUNTER 2020-05-03 21:05 | Outpatient (CLI) | payer MEDICAID, SELFPAY ==
[2020-05-03 21:10] VITALS: BMI 32.1
[2020-05-03 21:24] VITALS: RESP 18; TEMP 36.7
[2020-05-03 21:30] VITALS: BP 135/79; PULSE 109
[2020-05-03 22:59] VITALS: BP 135/74; PULSE 78
[2020-05-03 23:45] VITALS: BP 135/74; PULSE 78; RESP 18; TEMP 36.7
== END 2020-05-03 23:45 | disposition home or self-care (01) ==
LOC: OPOB 21:09 → OBGYN 21:09
PROVIDERS: PCP Obstetrics & Gynecology; Visit Provider Obstetrics & Gynecology
DX: O26.899 Other specified pregnancy related conditions, unspecified trimester (principal); Z3A.00 Weeks of gestation of pregnancy not specified; R10.9 Unspecified abdominal pain
CPT/HCPCS: 59025; 81000; 87635; 99211

== ENCOUNTER 2020-05-04 18:22 | Inpatient (IN) | payer MEDICAID, SELFPAY ==
[2020-05-04] VITALS (54 sets, daily range): BP systolic 0–157; BP diastolic 0–98; PULSE 73–129; RESP 17–18; TEMP 36.6–36.8; O2SAT 96–97; BMI 31.9
[2020-05-04 16:01] LABS: Nitrazine Paper, PH Negative
[2020-05-04] MEDS: fentaNYL 50 mcg/mL INJ 2mL IV (16:38)
[2020-05-04] MEDS: lactated ringers 1,000 ML 999 ML IV ×2 (17:00→23:25)
[2020-05-04 17:26] LABS: Basophils % 0.2 %; Eosinophils % 0.2 %; Hemoglobin 12.9 g/dL (11.5-15.3); Lymphocytes # 2.5 10^3/uL (0.8-4.8); Lymphocytes % 14.7 %; Mean Corpuscular HGB Conc 33.1 g/dL (30.0-36.0); Mean Corpuscular Hemoglobin 27.4 pg (28.0-34.0); Mean Corpuscular Volume 82.8 fL (81-99); Mean Platelet Volume 12.3 fL (7.4-10.4); Monocytes % 5.8 %; Neutrophils # 13.23 10^3/uL (1.8-7.7); Neutrophils % 78.6 %; Nucleated Red Blood Cells % 0 %; Platelet Count 248 10^3/cmm (130-400); Red Blood Count 4.71 10^6/uL (4.1-5.3); Red Cell Distribution Width 12.8 % (12.1-15.1); White Blood Count 16.8 10^3/uL (4.0-10.0)
[2020-05-04] MEDS: dextrose 5%-lactated ringers 1,000 ML 125 ML IV (17:56)
--- NOTE | 2020-05-04 18:30 | P.ANESASSM_ITS ---
Pre-Anesthetic Assessment Pre-Anesthetic Assessment: Height/Weight: Height 1.57 m Weight 79.199 kg Temp Pulse Resp BP Pulse Ox 97.9 F 80 18 132/66 97 05/04/20 15:47 05/04/20 18:27 05/04/20 16:38 05/04/20 18:27 05/04/20 18:05 Preop Diagnosis: Cholelithiasis Was Beta Omer taken within 24 hours: N/A Social: Social History: No alcohol and No tobacco Exam: Pre-Anes Outpt Exam: alert, oriented x 3, clear to auscultation jose angel aterally and regular rate & rhythm Airway: Submandibular: WNL Cervical ROM: WNL MP: 2 Dentition: Full History/ROS: No significant history except as noted Anesthetic Plan: ASA status: 2 Anesthesia: Regional (specify below) (Labor epidural) Risk of > 500 ml blood loss (7ml/kg in children): No Meds/Allergies Current Medications: Current Medications Generic Name Dose Route Start Last Admin Trade Name Freq PRN Reason Stop Dose Admin Fentanyl 25 - 100 mcg 05/04/20 16:23 05/04/20 16:38 Fentanyl 50 Mcg/ Ml Inj 2ml IV 25 mcg Q1H PRN Administration SEVERE PAIN Dextrose/Lactated Ringer's 1,000 mls @ 125 m ls/hr 05/04/20 17:00 05/04/20 17:56 Dextrose 5%-Lact ated Ringers IV 125 mls/hr .Q8H RAMIRO Administration Ropivacaine 200 mg in 100 mls @ 13 mls/hr 05/04/20 17:00 05/04/20 17:56 Naropin Premix EPIDURAL 13 mls/hr .Q7H42M RAMIRO Administration Lactated Ringer's 1,000 mls @ 999 m ls/hr 05/04/20 16:47 05/04/20 17:00 Lactated Ringers IV 999 mls/hr .Q1H1M PRN Administration See label comment s PFSH Anesthesia PFSH: Medical History Genital herpes Right flank pain Surgical History Status post laparoscopic cholecystectomy (11/11/19) Performed by Dr. Arellano at [facility] [place] Family History Denies family history of Diabetes Bleeding disorder Cancer Hypertension Stroke Social History (Updated 05/03/20 @ 08:15 by Yordy Mireles MD) Smoking and tobacco status: never smoked Alcohol intake: current Marital status: Single Additional social history: - Tobacco use: denies Alcohol use: socially prior to Drug use: denies Female Reproductive History: : 1 Data Anesthesia CBC & Chem 7: 05/04/20 16:40 Other Labs: Laboratory Results - last 48 hr 05/04/20 16:40 WBC 16.8 H RBC 4.71 Hgb 12.9 Hct 39.0 MCV 82.8 MCH 27.4 L MCHC 33.1 RDW 12.8 Plt Count 248 MPV 12.3 H Neut % (Auto) 78.6 Lymph % (Auto) 14.7 [place] % (Auto) 5.8 Eos % (Auto) 0.2 Baso % (Auto) 0.2 Neut # (Auto) 13.23 H Lymph # (Auto) 2.5 [place] # (Auto) 1.0 H Eos # (Auto) 0.0 Baso # (Auto) 0.0 Nucleated RBC % (auto) 0 Nucleated RBCs # 0.0 Cardiac Studies: No Data to Display
--- NOTE | 2020-05-04 18:31 | P.ANES_ITS ---
Anesthesia Procedures Procedure/Date: 05/04/20 Epidural: Time Out Performed: Yes Consents Signed: Procedure Consent Consent: from patient, risks and benefits reviewed and patient agrees to proceed Lumbar Level: L4-L5 Epidural position: sitting Epidural procedure: sterile prep of area, 1% lidocaine to numb the area, 18 g needle, neg for parest hesia, test dose given, 1.5% xylocaine 1:200k epi, placed PCEA, no systemic response, sterile dressing applied and 0.2% Ropiavacaine @ mls/hr (13) Additional Comments: GREGORIO at 4cm, cath at 9cm.
[2020-05-04] MEDS: acetaminophen 325 mg Tablet 650 MG PO (19:47)
[2020-05-04] MEDS: hyDROXYzine 25 mg Capsule 50 MG PO (21:14)
[2020-05-04] MEDS: ondansetron 2 mg/ML SDV 2 mL 4 MG IVP (21:14)
[2020-05-05] VITALS (34 sets, daily range): BP systolic 0–145; BP diastolic 0–90; PULSE 81–120; RESP 16–18; TEMP 36.7–37.7; O2SAT 96–98
[2020-05-05] MEDS: dextrose 5%-lactated ringers 1,000 ML 125 ML IV (00:51)
--- NOTE | 2020-05-05 02:35 | PC.NURSE ---
AT 0200, DR LEE TURNED EPIDURAL PUMP DOSE RATE DOWN TO 12MLS/HR.
[2020-05-05] MEDS: oxytocin 30 UNIT/500 ML BAG 600 UNIT IV (04:29)
--- NOTE | 2020-05-05 04:46 | P.PCNOB_ITS ---
Delivery Note: Date of delivery: May 05, 2020 Pre-delivery diagnoses: 1. at 37-4/7 weeks gestation 2. Rh- status in 3. History of genital herpes complicating Post-delivery diagnoses: 1. Term vaginal delivery at 37-4/7 weeks gestation. 2. Rh- status in - delivered 3. History of genital herpes complicating - delivered 4. Viable female . Procedure: Spontaneous vaginal delivery Op report anesthesia: Epidural Delivering Physician: Dr. Yordy Mireles Estimated blood loss (mL): 150 Pre-Delivery Course: Patient is a 20-year-old female 1, para 0 with an LMP of 08/13/2019 (guess) and an EDC of 05/22/2020 based on 11-week ultrasound, which placed her at 37-3/7 weeks gestation at time of admission on 05/04/2020. care has been mainly provided by Dr. Mireles at [facility]. Her was complicated by kidney stones during the . She also had a history of genital herpes and had been on suppression with Valtrex during the . She was also noted to be Rh-. Patient presented to labor and delivery at 15:00 on 05/04 with complaint of contractions. She was noted to be 90% effaced and 4 to 5 cm dilated and a -2 station. She was found to be paulette regularly. She was admitted to the hospital. Patient denied any sores or prodromal symptoms of herpes. No sores were seen on exam. She became uncomfortable enough that she decided to have epidural. By 18:05 she was 5 to 6 cm dilated. At 22:57, artificial rupture of membranes was performed with clear fluid present. She was 8 cm dilated at that time. She was found to be completely dilated by 00:47 on 05/05. She was very comfortable with epidural at that time and was allowed to labor down. Baby was reassuring during the labor course. Delivery: Patient started pushing at 04:02 and delivered at 04:24 as a spontaneous vaginal delivery of an occiput anterior female infant over an intact perineum under epidural anesthesia. Following delivery of the 's head, no nuchal cords were noted. The rest of the infant delivered atraumatically with the left shoulder anterior. The baby was placed on the mother's abdomen where it was left in the care of the waiting nurses. It had started spontaneously crying. Cord clamping was delayed at least 30 seconds. The cord was cut by the reported father of the baby. Cord blood was obtained. Pitocin bolus was started. Placenta delivered intact by simple expression at 04:30. Cervix and vagina were palpated and noted to be intact. Labia were inspected and noted to be intact except for superficial lacerations which were hemostatic and required no repair. FINDINGS 1. Viable female weighing 6 lbs 14 oz (3105 g) with a length of 20-1/2 inches and Apgars of 9 at 1 minute and 10 at 5 minutes. 2. Three-vessel cord with no loops of nuchal cord noted. 3. Normal-appearing placenta with an eccentric cord insertion. Post-Delivery Status: Mother and infant were left to recover in satisfactory condition. 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
[2020-05-05] MEDS: benzocaine-menthol 78 gm Canister 1 SPRAY TOPICAL (05:29)
[2020-05-05] MEDS: lanolin oint 7 gm 1 APPLIC TOPICAL (05:29)
--- NOTE | 2020-05-05 06:57 | PC.NURSE ---
PT UP TO BATHROOM AT 0650. ONE LARGE CLOT EXPRESSED PT WAS GETTING OUT OF BED. FIELD NURSE PROVIDED STANDBY ASSISTANCE FOR WALK TO BATHROOM. PT TOLERATED WELL.
--- NOTE | 2020-05-05 08:01 | PC.NURSE ---
Patient wheeled to room via wheelchair. Patient tolerated ambulation in room well, denying any weakness or dizziness. Patient reports feeling weak due to not eating in a while. Patient provided breakfast tray at this time.
[2020-05-05] MEDS: docusate sodium 100 mg Capsule PO ×2 (08:17→18:37)
[2020-05-05] MEDS: ibuprofen 800 mg tablet PO ×3 (08:17→21:43)
[2020-05-05 17:00] LABS: Hematocrit 28.1 % (37.0-47.0); Hemoglobin 9.4 g/dL (11.5-15.3); Mean Corpuscular HGB Conc 33.5 g/dL (30.0-36.0); Mean Corpuscular Hemoglobin 28.1 pg (28.0-34.0); Mean Corpuscular Volume 83.9 fL (81-99); Mean Platelet Volume 11.8 fL (7.4-10.4); Platelet Count 188 10^3/cmm (130-400); Red Blood Count 3.35 10^6/uL (4.1-5.3); Red Cell Distribution Width 13.1 % (12.1-15.1)
[2020-05-05] MEDS: acetaminophen 325 mg Tablet 650 MG PO (18:37)
--- NOTE | 2020-05-05 18:48 | PC.NURSE ---
Contacted pharmacy with request for patient to receive valtrex. Pharmacy reported that on their side, it doesn't show that an equivalent medication can be substituted. Pharmacy reports that valacyclovir 1000 mg is a formulary medication. Pharmacist confirmed that the pills can be scored. Pharmacy reported they are going to bring the medication when possible to the floor for patient.
[2020-05-05] MEDS: valACYclovir 1,000 mg Tablet 500 MG PO (19:54)
--- NOTE | 2020-05-06 01:36 | PC.NURSE ---
Rhogam administered at 2034 on 05/05/20. lot number [id number] and expiration date of October 14, 2021. verified against patient's blood band and two patient identifiers.
[2020-05-06 04:30] VITALS: BP 91/53; PULSE 95; RESP 18; TEMP 36.6; O2SAT 98
[2020-05-06] MEDS: ibuprofen 800 mg tablet PO (09:01)
[2020-05-06] MEDS: docusate sodium 100 mg Capsule PO (09:01)
[2020-05-06 09:03] VITALS: BP 108/75; PULSE 89; RESP 16
[2020-05-06] MEDS: valACYclovir 1,000 mg Tablet 500 MG PO (09:03)
--- NOTE | 2020-05-06 10:32 | P.DS_ITS ---
Discharge Providers ED TECH Date of Admission: 05/04/20 18:22 Date of Discharge: 05/06/20 Attending Provider at Admission: Jared Trinh MD Attending Provider at Discharge: Jared Trinh MD Primary Care Provider: Yordy Mireles MD Diagnoses at Discharge Discharge Diagnosis (1) Normal spontaneous vaginal delivery: Status: Acute (2) Rh negative status during : Status: Acute Qualifiers: Trimester: third trimester Qualified Code(s): O26.893 - Other specified related conditions, third trimester; Z67.91 - Unspecified blood type, Rh negative Reason for Visit Reason for Visit: contractions Hospital Course Hospital Course Patient is a 20-year-old white female 1, para 0 with an LMP of 08/13/2019 (guess) and an EDC of 05/22/2020 based on 11-week ultrasound, which placed her at 37-3/7 weeks gestation at admission. She presented to L&D at 15:00 on 05/04/2020 with complaint of contractions. Presentation, she was found to be 4 to 5 cm dilated, 90% effaced, and -2 station. She was paulette regularly. She had epidural placed. She continued to progress on her own. By 22:57, she was 8 cm dilated and had artificial rupture membranes performed at that time with clear fluid present. She was found to be completely dilated by 00:47 on 05/05. She was very comfortable at the time and was allowed to labor down. She started pushing at 04:02 and delivered at 04:24 as a spontaneous vaginal delivery of an occiput anterior female over an intact perineum under epidural anesthesia. The baby weighed 6 lbs 14 oz (3105 g) with a length of 20- 1/2 inches and Apgars of 9 at 1 minute and 10 at 5 minutes. Mother and infant were doing well following delivery. Day 1 Patient was without complaints. She did report having a mild headache that was somewhat positional. She denied any lightheadedness or dizziness with ambulation. She denied any shortness of breath or chest pains. She denied any problems with urination. She reported tolerating regular diet without nausea or vomiting. She stated that her bleeding had slowed. She was requesting to go home. Physical exam: See below Plan Due to the headache, discussed with patient importance of staying well-hydrated. Caffeine use in case this is a mild spinal headache was discussed. Questions were answered. Patient was also anemic and had been on iron during the . She was instructed to continue the iron in addition to the vitamins. Discharge to home. Discharge instructions discussed with patient. Patient to follow-up in the office in approximately 6 weeks for exam. Information Peripartum Data: Delivery Method: Vaginal Physical Exam Const: COMMON NORMALS: no acute distress, average body habitus, alert and well nourished GENERAL APPEARANCE: well developed ORIENTATION/CONSCIOUSNESS: Yes oriented to person, Yes oriented to place and Yes oriented to time GI: COMMON NORMALS: Soft to palpation, non-tender, No hepatosplenomegaly present and no masses (Except for nontender uterus) AUSCULTATION: Yes normoactive bowel sounds PALPATION: Yes Soft to palpation, Yes No hepatosplenomegaly present and No Hernia present : EXTERNAL FEMALE EXAM: No Hernia present Extremity: COMMON NORMALS: no calf tenderness NARRATIVE EXTREMITY EXAM: Trace to 1+ lower extremity edema Neuro: SENSORIUM/ORIENTATION: Yes alert, Yes oriented to person, Yes oriented to place and Yes oriented to time Psych: COMMON NORMALS: normal affect MOOD & AFFECT: Yes euthymic mood Urinary Catheter Management^: Colin: Cath Placed During This Visit: yes Reason for Continuing Indwelling Catheter: Other Urinary Catheter Date of Insertion: 05/04/20 Urinary Catheter Time of Insertion: 18:05 Discharge Data Data Completed and Pending: Labs from last 24 hours 05/05/20 05/05/20 05/04/20 16:38 16:38 20:48 WBC 14.0 H RBC 3.35 L Hgb 9.4 L Hct 28.1 L MCV 83.9 MCH 28.1 MCHC 33.5 RDW 13.1 Plt Count 188 MPV 11.8 H Blood Type A Negative Rho(D) Type Negative Antibody Screen Negative Screen Negative Vitals: Last Vital Signs Temp 97.8 F 05/06/20 04:30 Pulse 89 05/06/20 09:03 Resp 16 05/06/20 09:03 BP 108/75 05/06/20 09:03 Pulse Ox 98 05/06/20 04:30 Discharge Plan Discharge Condition: Stable Prescriptions: Continued prenat.vits,isidoro,udb-zewq-pktqu Tablet 1 tab PO DAILY RF: 0 ferrous sulfate 325 mg (65 mg iron) tablet See Rx Instructions PO DAILY RF: 0 valacyclovir [Valtrex] 500 mg tablet 500 mg PO Q12H Qty: 60 RF: 6 Discontinued calcium carbonate [Calcium 500] 500 mg calcium (1,250 mg) tablet See Rx Instructions PO DAILY RF: 0 magnesium gluconate 27 mg magnesium (500 mg) tablet See Rx Instructions PO DAILY RF: 0 famotidine [Pepcid] 20 mg tablet 20 mg PO BID Qty: 60 RF: 3 Discharge Orders: Discharge Order (Routine); Ordered 05/06/20 Ordered By: Yordy Mireles Referrals: Yordy Mireles MD [Primary Care Provider] - 06/18/20 2:00 pm Discharge Diet: Regular Discharge Activity: Limit activity as instructed Patient Instructions: Vitamins (By mouth), OB Discharge Report, OB Food/Drug Interaction Guide, OB Proud Parent Packet, OB Vaginal Deliveries, OB Vaginal Deliveries - [facility] Activity Restrictions/Additional Instructions: May use slez-lwn-jwljxyn Tylenol as needed for pain. Use citw-tpt-wudiafq ibuprofen, 200 mg, 4 tablets 3 times a day or 3 tablets 4 times a day, as needed for pain Discharge Attestations ED TECH Time Spent in Discharge Care*: less than 30 min Coding Level of Care Code Acute Monitor And Storage Bin Tender for Chg Fwd Diagnoses Normal spontaneous vaginal delivery O80 Rh negative status during O26.893; Z67.91 Trimester: third trimester
[2020-05-06 10:56] VITALS: BP 113/75; PULSE 86; RESP 16; TEMP 36.7
[2020-05-06 11:11] VITALS: BP 113/75; PULSE 86; RESP 16; TEMP 36.7
== END 2020-05-06 12:00 | disposition home or self-care (01) | DRG 806 ==
LOC: OPOB 18:22 → OBGYN 18:22
PROVIDERS: Admitting Provider Obstetrics & Gynecology; PCP Obstetrics & Gynecology; Visit Provider Obstetrics & Gynecology
DX: O36.0930 Maternal care for other rhesus isoimmunization, third trimester, not applicable or unspecified (principal); O98.32 Other infections with a predominantly sexual mode of transmission complicating childbirth; Z37.0 Single live birth; A60.00 Herpesviral infection of urogenital system, unspecified; Z3A.37 37 weeks gestation of pregnancy
CPT/HCPCS: 12345; 36415; 36430; 51702; 59025; 59409; 83986; 85025; 85027; 85460; 86850; 86900; 90384; 96375; 99211; J2405; J2795; J3010

== ENCOUNTER 2020-06-27 13:03 | Outpatient (CLI) | payer BC, MEDICAID, SELFPAY | END 2020-06-27 15:00 | disposition home or self-care (01) | LOC: LAB 03-14 12:44 | PROVIDERS: Visit Provider Obstetrics & Gynecology | DX: Z30.09 Encounter for other general counseling and advice on contraception (principal) | CPT/HCPCS: 81025 ==

== ENCOUNTER 2020-06-27 22:03 | Inpatient (IN) | payer BC, SELFPAY ==
[2020-06-27 22:07] VITALS: BP 123/85; PULSE 91; RESP 18; TEMP 36.8; O2SAT 98; BMI 30.2
--- NOTE | 2020-06-27 22:22 | ECG_ITS ---
[facility] Test Date: 2020-06-27 Pat Name: Elian Xiong Department: Room: Gender: Female Cardroom Attendant: : 2000 Requested By: Jazlyn Manrique Order Number: [id number] Zoraida MD: Cory Hallman M.D. Measurements Intervals [place] Rate: 76 P: 22 MS: 145 QRS: 44 QRSD: 73 T: 29 QT: 363 QTc: 408 Interpretive Statements SINUS RHYTHM No previous ECG available for comparison Electronically Signed On 06-28-2020 18:01:48 CARD ROOM MANAGER by Cory Hallman M.D. [id number]
[2020-06-27] MEDS: charcoal (sorbitol) 25 gm/120 mL UDC 50 GM PO (22:25)
--- NOTE | 2020-06-27 22:26 | W.ED.OVERDOS ---
HPI - Overdose General: Chief Complaint: Overdose Stated Complaint: SI - STATES HAS TAKEN TOO MANY ANTIDEPRESENTS Time Seen by Provider: 06/27/20 22:13 Source: patient Mode of arrival: ambulatory Limitations: no limitations History of Present Illness: HPI Narrative: 20-year-old female who states she accidentally took too many of her meds tonight. States she is feeling anxious and wanted to just go to sleep. She states she took her bottle of Zoloft and excellently took all the pills. She states a very small pills and she did not mean to take them all and is not suicidal or homicidal. She ingested 27 25 mg Zoloft tablets. Patient states that after she realized she took all of them she came up here immediately. Her ingestion happened roughly 30 minutes ago. complaint: accidental overdose Onset (ago): minute(s) Review of Systems Const: Denies: fever(s), chills, body aches or change in appetite Eyes: Denies: blurry vision or eye discomfort ENMT: Denies: throat pain or dental pain Card: Denies: chest pain Resp: Denies: dyspnea GI: Denies: abdominal pain, nausea, vomiting or diarrhea : Denies: dysuria Musc: Denies: neck pain or back pain Skin/Breast: Denies: rash Neuro: Denies: headache(s) Psych: Reports: anxiety; Denies: depression Jed/Lymph: Denies: easy bruising All/Imm: Denies: urticaria PFS ED PFSH: Medical History (Updated 06/27/20 @ 23:02 by Jazlyn Manrique MD) Genital herpes Right flank pain Surgical History Status post laparoscopic cholecystectomy (11/11/19) Performed by Dr. Arellano at [facility] Family History Denies family history of Diabetes Bleeding disorder Cancer Hypertension Stroke Social History (Updated 06/20/20 @ 18:54 by Yordy Mireles MD) Smoking and tobacco status: never smoked Alcohol intake: current Marital status: Single Additional social history: - Tobacco use: denies Alcohol use: socially prior to Drug use: denies Physical Exam Const: COMMON NORMALS: no acute distress, patient oriented x3 and healthy appearing HENMT: COMMON NORMALS: normocephalic and atraumatic HEAD & SCALP: normocephalic and atraumatic Eye: COMMON NORMALS: Equal, round and reactive pupils present and EOMs intact bilaterally PUPIL: Yes Equal, round and reactive pupils present Neck/C-Spine: COMMON NORMALS: full ROM and supple Chest: COMMONS NORMALS: normal inspection of the chest and normal palpation of entire chest wall Resp: COMMON NORMALS: normal respiratory effort, No retractions, No use of accessory muscles and clear to auscultation bilaterally AUSCULTATION: clear to auscultation bilaterally Cardio: COMMON NORMALS: regular rate, regular rhythm and No murmurs present (Cardio) RATE: regular rate RHYTHM: regular rhythm GI: COMMON NORMALS: Normal to inspection, nondistended, normoactive bowel sounds present, Soft to palpation, non-tender and no masses PALPATION: Yes Soft to palpation Extremity: COMMON NORMALS: normal to inspection and full ROM Neuro: COMMON NORMALS: patient oriented x3, moves all extremities and no focal motor deficits Psych: COMMON NORMALS: mental status grossly normal, Normal thought process present and cooperative THOUGHT PROCESS: Normal thought process present Skin: COMMON NORMALS: no rashes or lesions noted and no wounds GENERAL SKIN EXAM: no rashes or lesions noted Course Vital Signs: Vital signs: Vital Signs Temperature 98.2 F 06/27/20 22:07 Pulse Rate 91 06/27/20 22:07 Respiratory Rate 18 06/27/20 22:07 Blood Pressure 123/85 06/27/20 22:07 Pulse Oximetry 98 06/27/20 22:07 MDM - Overdose MDM Narrative: Medical decision making narrative: Patient presents here with an overdose on her Zoloft. Patient here to denied suicidal attempt but she did take 27 tablets at once and her states she has been making suicidal statements and she was quite tearful in the room. I believe she is not stable on her own and will place her under 96 until she is evaluated by a psychiatrist. I spoke to hospitalist and will admit to the ICU as she did take a large amount and also spoke to Dr. Fischer of psychiatry who is consulted. Lab Data: Labs: Lab Results 06/27/20 06/27/20 06/27/20 Range/Units 22:29 22:29 22:29 WBC 9.3 (4.0-10.0) 10^3/ uL RBC 4.83 (4.1-5.3) 10^6/u L Hgb 13.0 (11.5-15.3) g/dL Hct 40.6 (37.0-47.0) % MCV 84.1 (81-99) fL MCH 26.9 L (28.0-34.0) pg MCHC 32.0 (30.0-36.0) g/dL RDW 13.7 (12.1-15.1) % Plt Count 350 (130-400) 10^3/c mm MPV 10.4 (7.4-10.4) fL Neut % (Auto) 63.6 % Lymph % (Auto) 29.6 % Barn[place] % (Auto) 4.5 % Eos % (Auto) 1.6 % Baso % (Auto) 0.4 % Neut # (Auto) 5.91 (1.8-7.7) 10^3/u L Lymph # (Auto) 2.8 (0.8-4.8) 10^3/u L Barnwell # (Auto) 0.4 (0.2-0.9) 10^3/u L Eos # (Auto) 0.2 (0.0-0.8) 10^3/u L Baso # (Auto) 0.0 (0.0-0.1) 10^3/u L Nucleated RBC % (a uto) 0 % Nucleated RBCs # 0.0 /100WBC Sodium 136 (136-145) mmol/L Potassium 4.0 (3.5-5.1) mmol/L Chloride 102 (98-107) mmol/L Carbon Dioxide 23 (22-29) mmol/L Anion Gap 15.0 (5-19) BUN 16 (6-20) mg/dL Creatinine 0.7 (0.5-0.9) mg/dL GFR Calculation 104.6 (90-130) mL/min Glucose 85 (65-115) mg/dL Calculated Osmolal ity 282 L (285-295) mOsm/k g Calcium 10.0 (8.5-10.5) mg/dL Total Bilirubin 0.5 (0.15-1.2) mg/dL AST 28 (0-32) U/L ALT 65 H (0-33) U/L Alkaline Phosphata se 179 H (35-105) IU/L Total Protein 7.3 (6.6-8.7) g/dL Albumin 4.4 (3.5-5.2) g/dL Globulin 2.9 (1.3-4.6) g/dL Urine Color Yellow (Yellow) Urine Appearance Clear (CLEAR) Urine pH 6.0 (5-7) Ur Specific Gravit y 1.020 (1.005-1.030) Urine Protein Neg (Negative) Urine Glucose (UA) Norm (Normal) Urine Ketones Negative (Negative) Urine Blood 2+ H (Negative) Urine Nitrate Negative (Negative) Urine Bilirubin Neg (Negative) Urine Urobilinogen Norm (Negative) mg/dL Ur Leukocyte Autumn ase Negative (Negative) Urine RBC 0-4 H (0-2) /hpf Urine WBC None (0-5) /hpf Ur Squamous Epith Cells None (0-5) /hpf Amorphous Sediment Not Reportable Urine Bacteria Trace (NONE) /hpf Salicylates < 0.3 L (3-10) mg/dL Urine Opiates Scre en (Negative) ng/mL Acetaminophen < 5.0 L (10-30) ug/mL Ur Barbiturates Sc reen (Negative) ng/mL Ur Phencyclidine S crn (Negative) ng/mL Ur Amphetamines Sc reen (Negative) ng/mL U Benzodiazepines Scrn (Negative) ng/mL Urine Cocaine Scre en (Negative) ng/mL U Marijuana (THC) Screen (Negative) ng/mL Ethyl Alcohol < 10 (0-10) mg/dL 06/27/20 Range/Units 22:29 WBC (4.0-10.0) 10^3/ uL RBC (4.1-5.3) 10^6/u L Hgb (11.5-15.3) g/dL Hct (37.0-47.0) % MCV (81-99) fL MCH (28.0-34.0) pg MCHC (30.0-36.0) g/dL RDW (12.1-15.1) % Plt Count (130-400) 10^3/c mm MPV (7.4-10.4) fL Neut % (Auto) % Lymph % (Auto) % Barnwell % (Auto) % Eos % (Auto) % Baso % (Auto) % Neut # (Auto) (1.8-7.7) 10^3/u L Lymph # (Auto) (0.8-4.8) 10^3/u L Barn[place] # (Auto) (0.2-0.9) 10^3/u L Eos # (Auto) (0.0-0.8) 10^3/u L Baso # (Auto) (0.0-0.1) 10^3/u L Nucleated RBC % (a uto) % Nucleated RBCs # /100WBC Sodium (136-145) mmol/L Potassium (3.5-5.1) mmol/L Chloride (98-107) mmol/L Carbon Dioxide (22-29) mmol/L Anion Gap (5-19) BUN (6-20) mg/dL Creatinine (0.5-0.9) mg/dL GFR Calculation (90-130) mL/min Glucose (65-115) mg/dL Calculated Osmolal ity (285-295) mOsm/k g Calcium (8.5-10.5) mg/dL Total Bilirubin (0.15-1.2) mg/dL AST (0-32) U/L ALT (0-33) U/L Alkaline Phosphata se (35-105) IU/L Total Protein (6.6-8.7) g/dL Albumin (3.5-5.2) g/dL Globulin (1.3-4.6) g/dL Urine Color (Yellow) Urine Appearance (CLEAR) Urine pH (5-7) Ur Specific Gravit y (1.005-1.030) Urine Protein (Negative) Urine Glucose (UA) (Normal) Urine Ketones (Negative) Urine Blood (Negative) Urine Nitrate (Negative) Urine Bilirubin (Negative) Urine Urobilinogen (Negative) mg/dL Ur Leukocyte Autumn ase (Negative) Urine RBC (0-2) /hpf Urine WBC (0-5) /hpf Ur Squamous Epith Cells (0-5) /hpf Amorphous Sediment Urine Bacteria (NONE) /hpf Salicylates (3-10) mg/dL Urine Opiates Scre en Negative (Negative) ng/mL Acetaminophen (10-30) ug/mL Ur Barbiturates Sc reen Negative (Negative) ng/mL Ur Phencyclidine S crn Negative (Negative) ng/mL Ur Amphetamines Sc reen Negative (Negative) ng/mL U Benzodiazepines Scrn Negative (Negative) ng/mL Urine Cocaine Scre en Negative (Negative) ng/mL U Marijuana (THC) Screen Positive H (Negative) ng/mL Ethyl Alcohol (0-10) mg/dL EKG Data^: EKG 1: Attestation: I personally reviewed and interpreted this EKG as follows: EKG interpretation date: 06/27/20 EKG interpretation time: 22:28 Interpretation: nsr hr [address] or t wave abnormalities qrs 73 qtc 393 Critical Care Time Critical Care Time: Critical Care Time: Yes Total Critical Care Time: 35 Attestation: This case had a high probability of a clinically significant, sudden, or life threatening deterioration of this patient's condition which required my full and direct attention, intervention and personal management. Discharge Plan Discharge Patient Disposition: Admitted As Inpatient Clinical Impression: Drug overdose Condition: Stable Coding Level of Care Code ED Emergency Technician for Rosi Fwd Exam Comprehensive
[2020-06-27 22:35] LABS: Basophils % 0.4 %; Eosinophils # 0.2 10^3/uL (0.0-0.8); Eosinophils % 1.6 %; Hematocrit 40.6 % (37.0-47.0); Lymphocytes # 2.8 10^3/uL (0.8-4.8); Lymphocytes % 29.6 %; Mean Corpuscular Hemoglobin 26.9 pg (28.0-34.0); Mean Corpuscular Volume 84.1 fL (81-99); Mean Platelet Volume 10.4 fL (7.4-10.4); Monocytes # 0.4 10^3/uL (0.2-0.9); Monocytes % 4.5 %; Neutrophils # 5.91 10^3/uL (1.8-7.7); Neutrophils % 63.6 %; Nucleated Red Blood Cells % 0 %; Platelet Count 350 10^3/cmm (130-400); Red Blood Count 4.83 10^6/uL (4.1-5.3); Red Cell Distribution Width 13.7 % (12.1-15.1); White Blood Count 9.3 10^3/uL (4.0-10.0)
[2020-06-27 22:47] LABS: Urine Appearance Clear (CLEAR); Urine Color Yellow (Yellow)
[2020-06-27 22:48] LABS: Add Urine Culture? No; Add Urine Microscopic? YES; Bacteria Urine TRACE /hpf; Bilirubin Urine Neg (Negative); Blood Urine 2+ (Negative); Glucose Urine UA Norm (Normal); Ketones Urine Negative (Negative); Leukocyte Esterase Urine Negative (Negative); Nitrate Urine Negative (Negative); Protein Urine Neg (Negative); RBC Urine 0-4 /hpf (0-2); Urobilinogen Urine Norm (Negative)
[2020-06-27 22:50] LABS: Alanine Aminotransferase 65 U/L (0-33); Albumin Level 4.4 g/dL (3.5-5.2); Alkaline Phosphatase 179 IU/L (35-105); Aspartate Amino Transferase 28 U/L (0-32); Blood Urea Nitrogen 16 mg/dL (6-20); Carbon Dioxide 23 mmol/L (22-29); Chloride 102 mmol/L (98-107); Creatinine Clr Calc Pharmacy 119.3992; Globulin 2.9 g/dL (1.3-4.6); Glomerular Filtration Rate 104.6 mL/min (90-130); Glucose 85 mg/dL (65-115); Osmolality Calculated 282 mOsm/kg (285-295); Sodium 136 mmol/L (136-145); Total Bilirubin 0.5 mg/dL (0.15-1.2); Total Protein 7.3 g/dL (6.6-8.7)
[2020-06-27 22:56] LABS: Salicylate < 0.3 mg/dL (3-10)
[2020-06-27 22:57] LABS: Acetaminophen < 5.0 ug/mL (10-30); Alcohol Level < 10 mg/dL (0-10)
[2020-06-27 23:35] LABS: Amphetamines Screen Urine Negative (Negative); Barbiturates Screen Urine Negative (Negative); Benzodiazepines Screen Urine Negative (Negative); Cocaine Screen Urine Negative (Negative); Opiate Screen Urine Negative (Negative); PCP Screen Urine Negative (Negative); THC Screen Urine Positive (Negative)
--- NOTE | 2020-06-27 23:48 | P.HP_ITS ---
Providers/Chief Complaint Admitting Physician: Enoch Sheets MD Chief Complaint: SI - STATES HAS TAKEN TOO MANY ANTIDEPRESENTS History of Present Illness Elian Xiong is a 20 year old female recently had vaginal delivery on 05/05( viable female who was recently seen at [facility] for tongue-tie after breast-feeding issues), status post laparoscopic cholecystectomy during , suffering from depression(was started on progesterone), recently finished clindamycin for mastitis was seen today by Dr. Mireles for placement of IUD presented today after taking 22 tablets of Zoloft. Patient is denying suicidal ideation or recent social stressors she does not have any friction in her relationship with her boyfriend, she is endorsing depression even before her she had a traumatic event at age 10 which she is not able to cope with for now, she has never been diagnosed with PTSD. She has received 5 shots of progesterone for depression at [facility], recently was started on Zoloft by her PCP. She is not sure about the dosage. She is stating that today she was feeling really anxious and things were making her very irritable, in order to calm herself down she took all these tablets thinking they were benign and would not cause overdose effects. Diagnostics in the ER revealed normal CBC BMP, she is normal hemodynamically, she was given charcoal therapy, has had only one episode of emesis with charcoal content, she felt better after an episode of emesis, neuropsych was consulted hospital service was requested to admit her and observe overnight. At the time of my evaluation there was no signs of serotonin syndrome myoclonus absent, she denies suicidal thoughts or ideation Review of Systems Const: Denies: fever(s) Eyes: Denies: change in vision ENMT: Denies: throat pain Card: Denies: chest pain Resp: Denies: dyspnea GI: Denies: abdominal pain : Denies: flank pain Musc: Denies: neck pain Skin/Breast: Denies: rash Neuro: Denies: headache(s) Psych: Reports: depression, mood swings, panic attacks, irritability and difficulty concentrating; Denies: suicidal ideation or homicidal ideation Endo: Denies: polyuria Jed/Lymph: Denies: easy bruising All/Imm: Denies: urticaria Medications/Allergies Home Medications Medication Instructions Recorded Confirmed Last Taken Type prenat.vits,isidoro,mxo-wpdr-wfyru 1 tab PO DAILY 07/08/20 01/27/21 12/02/20 10:00 History mupirocin calcium 2 % topical cream 1 applic TOPICAL TID 06/18/20 06/27/20 Unknown History sertraline 25 mg tablet See Rx Instructions PO DAILY 06/27/20 06/27/20 Unknown History Allergies Allergy/AdvReac Type Severity Reaction Status Date / Time amoxicillin [From Augmentin] Allergy Mild rash, Verified 06/27/20 13:09 itching clavulanic acid Allergy Mild rash, Verified 06/27/20 13:09 [From Augmentin] itching PFSH Acute PFSH: Medical History (Updated 06/28/20 @ 00:28 by Enoch Sheets MD) Genital herpes Right flank pain Surgical History Status post laparoscopic cholecystectomy (11/11/19) [place] [facility] Family History Denies family history of Diabetes Bleeding disorder Cancer Hypertension Stroke Social History Smoking and tobacco status: never smoked Alcohol intake: current Marital status: Single Additional social history: - Tobacco use: denies Alcohol use: socially prior to Drug use: denies Vitals/I&O/Wt Last Vital Signs Temp 98.2 F 06/27/20 22:07 Pulse 91 06/27/20 22:07 Resp 18 06/27/20 22:07 BP 123/85 06/27/20 22:07 Pulse Ox 98 06/27/20 22:07 Weight last 48 hrs Weight 74.843 kg Physical Exam Narrative: EXAM NARRATIVE: Young female who was sitting comfortably in her bed when I entered the room experienced 1 episode of emesis with charcoal content, felt better afterwards, she was hemodynamically stable saturating well on room air No suicidal ideation or thoughts S1, S2 sinus rhythm no signs of heart failure No acute respite distress Abdomen soft nontender Lower extremity no edema gangrene ulcer No neurological signs of stroke No myoclonus noted no signs of serotonin syndrome EOMI, PERRLA Patient seems to have good insight she is very conversive, her speech does not seem pressured, no active panic attack signs Appropriate mood and affect Well organized think, no signs of delusion Data : 06/27/20 22:29 06/27/20 22:29 A&P Assessment and plan (1) Drug overdose: Status: Acute (2) Depression: Status: Acute Additional A&P Information Drug overdose took 22 tablets 25 mg Zoloft Currently denies any suicidal thoughts or ideation Endorsing depression before which seem to got worse after , she received 5 shots of progesterone for depression which did not seem to help her symptoms, currently was started on Zoloft by PCP which I would hold for now No signs of serotonin syndrome, received charcoal treatment in the ER Monitor with telemetry on medical floor, I will keep her on one-to-one supervision however she has good insight with well-organized thoughts no signs of delusion, drug screen revealed positive marijuana will request psych consult Regular diet Full code No need of DVT prophylaxis Attestations Medical Necessity Statement*: Anticipating discharge in less than 48 hours will need psych consult before discharge currently denies suicidal ideation no signs of serotonin syndrome Time Spent in Patient Care: (>than 50% of time spent in counselling and/or direct pt care on unit) . 40mins Coding Level of Care Code Acute Biometric Fingerprinting Technician for Rosi Dillon Diagnoses Drug overdose T50.901A Depression F32.9
--- NOTE | 2020-06-27 23:50 | PC.NURSE ---
Pt had an episode of emesis at this time, pt c/o abdominal pain.
[2020-06-28] VITALS (29 sets, daily range): BP systolic 115–150; BP diastolic 51–95; PULSE 63–106; RESP 12–21; TEMP 36.2–37; O2SAT 96–99; BMI 30.2
--- NOTE | 2020-06-28 00:05 | PC.NURSE ---
Pt states her abdominal pain is gone but she continues to have nausea
[2020-06-28] MEDS: ondansetron 2 mg/ML SDV 2 mL 4 MG IVP (01:01)
--- NOTE | 2020-06-28 01:11 | PC.NURSE ---
arrived from ED via stretcher, transferred self to bed, AO x4, C/O nausea PRN Zofran administered per request, sitter at bedside, 20 gauge IV started to LFA, tolerated well
[2020-06-28 05:06] LABS: Alanine Aminotransferase 63 U/L (0-33); Alkaline Phosphatase 165 IU/L (35-105); Anion Gap 14.9 (5-19); Aspartate Amino Transferase 36 U/L (0-32); Blood Urea Nitrogen 14 mg/dL (6-20); Calcium 9.5 mg/dL (8.5-10.5); Carbon Dioxide 22 mmol/L (22-29); Chloride 103 mmol/L (98-107); Glucose 109 mg/dL (65-115); Osmolality Calculated 281 mOsm/kg (285-295); Potassium 4.9 mmol/L (3.5-5.1); Sodium 135 mmol/L (136-145); Total Bilirubin 0.6 mg/dL (0.15-1.2)
--- NOTE | 2020-06-28 06:12 | PC.NURSE ---
Poison control called for update and notified this nurse they would close out her case on their end. Uneventful night, C/O nausea x1, no emesis , AO x4, follows commands, reported feeling fine other than feeling a little drunk
--- NOTE | 2020-06-28 10:22 | PC.PHAR ---
pt states she finished the progesterone/oil 50mg /ml injection last week sometime-pt states she finished her clindamycin yesterday 06/27/20
--- NOTE | 2020-06-28 14:55 | PM.PN ---
Subjective Subjective: Interval history: Admitted overnight. On examination patient is in jovial mood sitting with family including his her and baby. She denies any nausea, vomiting, headache. Eating and drinking well. She did have mild dizziness at around 3 AM. She states at that time she felt as though she was drunk. At present she denies any complaints. Sitter at bedside. Vitals/I&O/Wt Last Vital Signs Temp 98.1 F 06/28/20 07:19 Pulse 106 H 06/28/20 13:00 Resp 13 06/28/20 13:00 BP 150/82 06/28/20 13:00 Pulse Ox 98 06/28/20 13:00 06/27/20 06/28/20 06/28/20 22:59 06:59 14:59 Intake Total 150 / 150 720 / 720 Balance 150 / 150 720 / 720 Weight last 48 hrs Weight 74.843 kg Physical Exam Narrative: EXAM NARRATIVE: Young female who was sitting comfortably in her bed when I entered the room experienced 1 episode of emesis with charcoal content, felt better afterwards, she was hemodynamically stable saturating well on room air No suicidal ideation or thoughts S1, S2 sinus rhythm no signs of heart failure No acute respite distress Abdomen soft nontender Lower extremity no edema gangrene ulcer No neurological signs of stroke No myoclonus noted no signs of serotonin syndrome EOMI, PERRLA Patient seems to have good insight she is very conversive, her speech does not seem pressured, no active panic attack signs Appropriate mood and affect Well organized think, no signs of delusion Data : 06/27/20 22:29 06/28/20 03:26 A&P Assessment and plan (1) Drug overdose: Status: Acute (2) Depression: Status: Acute Additional A&P Information Drug overdose: 22 tablets 25 mg Zoloft Currently denies any suicidal thoughts or ideation Telemetry has remained stable. Blood work has remained stable. Patient denies any nausea vomiting, headache at present. Eating and drinking well. Patient has been accepted by Dr. Muñoz from psychiatry to be transferred to [facility] once stable from medical point of view. 96-hour hold. Continue with vitamins, Zofran as needed. Check CBC and CMP tomorrow morning. We will confirm with poison control tell when she has to pump and dump the breast milk before it would be safe for infant feeding. Patient is medically stable to be transferred to [facility]. Full code. Regular diet. Attestations Medical Necessity Statement*: Requires further hospitalization at [facility] for drug overdose because of depression. Time Spent in Patient Care: Greater than 35 minutes (>than 50% of time spent in counselling and/or direct pt care on unit). Coding Level of Care Code Acute Wall Worker for Rosi Pinedad Diagnoses Drug overdose T50.901A Depression F32.9
[2020-06-28 15:12] LABS: Iron 32 ug/dL (37-145); Percent Saturation 7.4 % (20-50); Total Iron Binding Capacity 432 mcg/dl; Unsaturated Iron Binding 400 ug/dL (112-347)
[2020-06-28 15:14] LABS: Thyroid Stimulating Hormone 0.61 uIU/mL (0.27-4.20)
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
--- NOTE | 2020-06-28 18:03 | PC.NURSE ---
Patient transferred to NPU via wheelchair with this nurse and security. Bedside belongings sent and given to NPU staff.
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
--- NOTE | 2020-06-29 02:39 | PC.NURSE ---
PM assessment Pt resting in her room but awake at onset of shift. Pt denies all, she requested to be allowed to remain in her room as she has a 2 month old baby at home and wishes to social distance to prevent taking her baby any infection. Pt is breast feeding, she pumped and discarded milk under observation of staff. Pt denies pain at this time. Will continue to monitor.
[2020-06-29 06:00] VITALS: BP 119/65; PULSE 68; RESP 18; TEMP 36.8; O2SAT 96
[2020-06-29 06:44] LABS: Basophils % 0.2 %; Eosinophils # 0.2 10^3/uL (0.0-0.8); Eosinophils % 1.9 %; Hematocrit 37.3 % (37.0-47.0); Hemoglobin 11.9 g/dL (11.5-15.3); Lymphocytes # 2.6 10^3/uL (0.8-4.8); Lymphocytes % 31.9 %; Mean Corpuscular HGB Conc 31.9 g/dL (30.0-36.0); Mean Corpuscular Hemoglobin 26.9 pg (28.0-34.0); Mean Corpuscular Volume 84.4 fL (81-99); Mean Platelet Volume 10.2 fL (7.4-10.4); Monocytes # 0.5 10^3/uL (0.2-0.9); Monocytes % 6.3 %; Neutrophils # 4.78 10^3/uL (1.8-7.7); Neutrophils % 59.3 %; Nucleated Red Blood Cells % 0 %; Platelet Count 312 10^3/cmm (130-400); Red Blood Count 4.42 10^6/uL (4.1-5.3); Red Cell Distribution Width 13.9 % (12.1-15.1); White Blood Count 8.1 10^3/uL (4.0-10.0)
[2020-06-29 07:02] LABS: Alanine Aminotransferase 50 U/L (0-33); Alkaline Phosphatase 161 IU/L (35-105); Aspartate Amino Transferase 23 U/L (0-32); Blood Urea Nitrogen 15 mg/dL (6-20); Calcium 9.1 mg/dL (8.5-10.5); Carbon Dioxide 25 mmol/L (22-29); Chloride 104 mmol/L (98-107); Creatinine Clr Calc Pharmacy 119.3992; Globulin 2.6 g/dL (1.3-4.6); Glomerular Filtration Rate 104.6 mL/min (90-130); Glucose 96 mg/dL (65-115); Osmolality Calculated 289 mOsm/kg (285-295); Sodium 139 mmol/L (136-145); Total Protein 6.6 g/dL (6.6-8.7)
[2020-06-29 14:00] VITALS: BP 119/64; PULSE 86; RESP 20; TEMP 36.7; O2SAT 98
--- NOTE | 2020-06-29 14:35 | P.PN_ITS ---
Subjective NPU Subjective: Interval history: Elian presents today not being very happy about still being hospitalized. A long conversation about the importance of her accepting that her behaviors created this circumstance and that she needs to take care of her mental health issues so that she doesn't create another situation like this in the future. We discussed the risks benefits and altern atives of initiating Paxil and she understood and agreed to proceed as documented in this note. We also discussed that I needed to talk to poison control about if there is a washout time we need before starting another SSRI prior to initiating the medication. Mental Status Exam MSE Comments: This is an overweight versus obese white female in hospital scrubs with adequate grooming and limited eye contact. No abnormal movements except for mild psychomotor retardation. Cooperative and in mild distress. Speech was decreased rate and volume. Mood described as fine, affect subdued and occasionally tearful. Thought process organized. Thought content: Patient denied suicidal or homicidal ideation, there were no delusions reported or noted, she denied any auditory or visual hallucinations. Attention and concentration appear intact and memory was somewhat reliable but none were formally tested. She is alert and oriented x3. Insight and judgment are limited, and impulse control is limited. Vitals/I&O/Wt Last Vital Signs Temp 98.1 F 06/29/20 14:00 Pulse 86 06/29/20 14:00 Resp 20 H 06/29/20 14:00 BP 119/64 06/29/20 14:00 Pulse Ox 98 06/29/20 14:00 Weight last 48 hrs Weight 74.843 kg Data NPU : 06/29/20 06:35 06/29/20 06:35 A&P Additional A&P Information (1) Drug overdose: (2) depression: (3) Cluster B personality disorder: Additional A&P Information This is a 20-year-old white female with a long history of trauma and 1 previous inpatient hospitalization who presents status post intentional overdose with concerns for safety of patient and her child. 1. Continue current medication. Based on poison control recommendation we will start Paxil 20 mg by mouth every morning on Thursday. 2. Continue every 15 minute checks for safety. 3. Encourage individual, group and milieu therapies. 4. She will need to wait 5 days before nursing again secondary to the ingestion. Involuntary Hold Information 96 Hour Hold: 96 Hour Involuntary Admission: Yes 96 Hour Hold Ending Date: 07/03/20 96 Hour Hold Ending Time: 23:48 Attestations NPU Medical Necessity Statement*: Inpatient hospitalization is medically necessary and the clinically appropriate intervention at this time. We will monitor medications and make changes as indicated.. Likely length of stay 2-4 days. Coding Level of Care Code Acute Voltage Tester for Rosi Dillon
--- NOTE | 2020-06-29 16:30 | PC.SOCIAL ---
Addendum entered by MIKE Colon 06/29/20 18:14: Below is information provided by email from Department of Senior Services: Thank you for reporting your concern to the Hotline. Based on [facility] law and regulations: The information you provided does not meet the criteria of a child abuse or neglect report. It does meet the criteria of a referral. The referral was sent to the [facility]s Division and field control inspector will take the appropriate action. The phone number for the [facility] Office is . The reference number is [id number] for the report submitted through [facility] on 06/29/2020 at 04:28PM. Original Note: Hotline made electronically to Department of Lumber T[employer].
[2020-06-29] MEDS: LORazepam 0.5 mg Tablet PO (18:51)
--- NOTE | 2020-06-29 18:58 | PC.NURSE ---
ATIVAN: Patient rec'd call from [facility] and became very emotional and anxious. DIANNE Beebe notified physician who prescribed Ativan. Order entered and dose administered. DEYSI WEEMS
[2020-06-29 20:56] VITALS: BP 118/65; PULSE 74; RESP 18; TEMP 36.7; O2SAT 93
[2020-06-30 06:00] VITALS: BP 101/62; PULSE 70; RESP 18; TEMP 36.6; O2SAT 96
[2020-06-30 14:00] VITALS: BP 109/70; PULSE 69; RESP 17; TEMP 37; O2SAT 95
[2020-06-30] MEDS: lanolin oint 7 gm 1 APPLIC TOPICAL (16:04)
--- NOTE | 2020-06-30 18:14 | P.PN_ITS ---
Subjective NPU Subjective: Interval history: Elian presents today reporting that she is open to starting the Paxil when we are able to started on Thursday. We will have a conversation about the situation. She discussed her relationship with her which she reports she had gotten out of a long-term relationship when the 2 of them met and next thing they knew they were expecting and so there sort of dating and raising a child at the same time and they are just really getting to know each other. She reports though that he is a good father and they have a firm commitment to work together regardless of the outcomes. She reports that she does feel safe to go home with the plan is of considering discharge tomorrow with a plan for her to initiate new medication on Thursday and follow-up with her providers after that. Mental Status Exam MSE Comments: This is an overweight versus obese white female in hospital scrubs with adequate grooming and eye contact. No abnormal movements. C ooperative and in no acute distress. Speech was more normal rate and volume. Mood described as better, affect congruent. Thought process organized. Thought content: Patient denied suicidal or homicidal ideation, there were no delusions reported or noted, she denied any auditory or visual hallucinations. Attention and concentration appear intact and memory was somewhat reliable but none were f ormally tested. She is alert and oriented x3. Insight and judgment are improving, and impulse control is improving. Vitals/I&O/Wt Last Vital Signs Temp 98.6 F 06/30/20 14:00 Pulse 69 06/30/20 14:00 Resp 17 06/30/20 14:00 BP 109/70 06/30/20 14:00 Pulse Ox 95 06/30/20 14:00 Data NPU : 06/29/20 06:35 06/29/20 06:35 A&P Additional A&P Information (1) Drug overdose: (2) depression: (3) Cluster B personality disorder: Additional A&P Information This is a 20-year-old white female with a long history of trauma and 1 previous inpatient hospitalization who presents status post intentional overdose with concerns for safety of patient and her child. 1. Continue current medication. Based on poison control recommendation we will start Paxil 20 mg by mouth every morning on Thursday morning. 2. Continue every 15 minute checks for safety. 3. Encourage individual, group and milieu therapies. 4. Plan for discharge tomorrow. Involuntary Hold Information 96 Hour Hold: 96 Hour Involuntary Admission: Yes 96 Hour Hold Ending Date: 07/03/20 96 Hour Hold Ending Time: 23:48 Attestations NPU Medical Necessity Statement*: Inpatient hospitalization is medically necessary and the clinically appropriate intervention at this time. We will monitor medications and make changes as indicated. Observation for lethality ongoing considering discharge normal. Likely length of stay 1-3 days. Coding Level of Care Code Acute Television Announcer for Rosi Dillon
[2020-06-30 19:54] VITALS: BP 123/84; PULSE 99; RESP 16; TEMP 37.2; O2SAT 97
[2020-06-30] MEDS: LORazepam 0.5 mg Tablet PO (22:56)
[2020-07-01 05:55] VITALS: BP 114/73; PULSE 66; RESP 18; TEMP 36.8; O2SAT 96
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
[2020-07-01 11:01] VITALS: BP 114/73; PULSE 66; RESP 18; TEMP 36.8; O2SAT 96
== END 2020-07-01 11:59 | disposition home or self-care (01) | DRG 918 ==
LOC: ER 23:02 → ICU 06-28 04:34 → NP 06-28 17:51
PROVIDERS: Student in an Organized Health Care Education/Training Program; Admitting Provider Internal Medicine; Emergency Provider Emergency Medicine; Visit Provider Psychiatry & Neurology Psychiatry
DX: T43.221A Poisoning by selective serotonin reuptake inhibitors, accidental (unintentional), initial encounter (principal); R45.851 Suicidal ideations; Y92.009 Unspecified place in unspecified non-institutional (private) residence as the place of occurrence of the external cause; F32.9 Major depressive disorder, single episode, unspecified; Z91.5 Personal history of self-harm; Z62.810 Personal history of physical and sexual abuse in childhood
CPT/HCPCS: 12345; 36415; 80053; 80306; 80307; 81001; 83540; 83550; 84443; 85025; 93005; 99281; G0378; J2405